=== PATIENT | female | born 1995 | race Hispanic/Latino ===

== ENCOUNTER 2019-03-03 13:58 | Emergency (ER) | payer BC, OTHER ==
--- NOTE | 2019-03-03 14:50 | ER ---
Nurse's Notes [facility] Name: Susanna Genao Age: 23 yrs Sex: Female : 1995 Arrival Date: 03/03/2019 Time: 14:01 Bed 12 Private MD: Diagnosis: Conjunctivitis Presentation: 03/03 14:08 Presenting complaint: Patient states: i think i have pink eye, it started 3 days ago;i hj used Visine;. Transition of care: patient was not received from another setting of care. Onset of symptoms was March 03, 2019. Risk Assessment: Do you want to hurt yourself or someone else? Patient reports no desire to harm self or others. Initial Sepsis Screen: Does the patient meet any 2 criteria? No. Patient's initial sepsis screen is negative. Does the patient have a suspected source of infection? No. Patient's initial sepsis screen is negative. Care prior to arrival: None. 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 2 in. (157.48 cm); Pain 5/10; 14:09 Body Mass Index 19.57 (48.53 kg, 157.48 cm) ED Course: 14:01 Patient arrived in ED. rg4 14:09 Triage completed. hj 14:09 Jenny Jeffers FNP-C is [facility]. kb 14:09 Kelton Holder MD is Attending Physician. kb 14:10 Arm band placed on right wrist. Administered Medications: No medications were administered Outcome: 14:50 Discharge ordered by . kb 15:19 Discharged to home ambulatory. hj 15:19 Condition: stable 15:19 Discharge instructions given to patient, Instructed on discharge instructions, follow up and referral plans. medication usage, Demonstrated understanding of instructions, follow-up care, medications, Prescriptions given X 1. 15:19 Patient left the ED. Signatures: Jenny Jeffers, SHIRLEYC PILE DRIVING NOZZLEMAN-Ihsan Jackson, RN RN Luz Maria Ferguson rg4 Corrections: (The following items were deleted from the chart) 14:11 14:09 Pulse 109bpm; Resp 18bpm; Pulse Ox 98% RA; Temp 97.8F Temporal; 48.53 kg; Height hj 5 ft. 2 in.; BMI: 19.5; Pain 5/10; hj
--- NOTE | 2019-03-03 14:51 | EDPHYS ---
Physician Documentation [facility] Name: Susanna Genao Age: 23 yrs Sex: Female : 1995 Arrival Date: 03/03/2019 Time: 14:01 Bed 12 Private MD: ED Physician Kelton Holder HPI: 03/03 15:35 This 23 yrs old Female presents to ER via Ambulatory with complaints of kb Redness of Eye. 15:35 The patient is experiencing matting or discharge, redness, The patient sustained None. kb to the left eye, caused by an unknown mechanism. Onset: The symptoms/episode began/occurred 3 day(s) ago. Duration: the symptoms are continuous. Aggravated by nothing. Alleviated by nothing. Associated signs and symptoms: Pertinent positives: None. Severity of symptoms: At their worst the symptoms were moderate in the emergency department the symptoms are unchanged. The patient has not experienced similar symptoms in the past. The patient has not recently seen a physician. 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 Historical: - Allergies: 14:09 No Known Allergies; - PMHx: 14:09 Anxiety; Bipolar disorder; GERD; - PSHx: 14:09 Cholecystectomy; ROS: 15:35 Constitutional: Negative for fever, chills, and weight loss, ENT: Negative for injury, kb pain, and discharge, Cardiovascular: Negative for chest pain, palpitations, and edema, Respiratory: Negative for shortness of breath, cough, wheezing, and pleuritic chest pain, Abdomen/GI: Negative for abdominal pain, nausea, vomiting, diarrhea, and constipation, MS/Extremity: Negative for injury and deformity, Skin: Negative for injury, rash, and discoloration, Neuro: Negative for headache, weakness, numbness, tingling, and seizure. 15:35 Eyes: Positive for discharge, matting, redness. Exam: 15:34 Constitutional: This is a well developed, well nourished patient who is awake, alert, kb and in no acute distress. Head/Face: Normocephalic, atraumatic. ENT: Nares patent. No nasal discharge, no septal abnormalities noted. Tympanic membranes are normal and external auditory canals are clear. Oropharynx with no redness, swelling, or masses, exudates, or evidence of obstruction, uvula midline. Mucous membranes moist. Neck: Trachea midline, no thyromegaly or masses palpated, and no cervical lymphadenopathy. Supple, full range of motion without nuchal rigidity, or vertebral point tenderness. No Meningismus. Chest/axilla: Normal chest wall appearance and motion. Nontender with no deformity. No lesions are appreciated. Cardiovascular: Regular rate and rhythm with a normal S1 and S2. No gallops, murmurs, or rubs. Normal PMI, no JVD. No pulse deficits. Respiratory: Lungs have equal breath sounds bilaterally, clear to auscultation and percussion. No rales, rhonchi or wheezes noted. No increased work of breathing, no retractions or nasal flaring. Abdomen/GI: Soft, non-tender, with normal bowel sounds. No distension or tympany. No guarding or rebound. No evidence of tenderness throughout. Skin: Warm, dry with normal turgor. Normal color with no rashes, no lesions, and no evidence of cellulitis. MS/ Extremity: Pulses equal, no cyanosis. Neurovascular intact. Full, normal range of motion. Neuro: Awake and alert, GCS 15, oriented to person, place, time, and situation. Cranial nerves II-XII grossly intact. Motor strength 5/5 in all extremities. Sensory grossly intact. Cerebellar exam normal. Normal gait. 15:34 Eyes: Conjunctiva: injected, in the left eye. Vital Signs: 14:09 BP 100 / 76; Pulse 109; Resp 18; Temp 97.8(TE); Pulse Ox 98% on R/A; Weight 48.53 kg; hj Height 5 ft. 2 in. (157.48 cm); Pain 5/10; 14:09 Body Mass Index 19.57 (48.53 kg, 157.48 cm) MDM: 14:12 Patient medically screened. kb 15:34 Data reviewed: vital signs, nurses notes. Data interpreted: Pulse oximetry: on room air kb is 98 %. Interpretation: normal. Counseling: I had a detailed discussion with the patient and/or guardian regarding: the historical points, exam findings, and any diagnostic results supporting the discharge/admit diagnosis, the need for outpatient follow up, an opthalmologist, to return to the emergency department if symptoms worsen or persist or if there are any questions or concerns that arise at home. Administered Medications: No medications were administered Disposition: 16:47 Co-signature as Attending Physician, Kelton Holder MD. Disposition: 03/03/19 14:50 Discharged to Home. Impression: Conjunctivitis. - Condition is Stable. - Discharge Instructions: Bacterial Conjunctivitis, [id number]. - Prescriptions for Erythromycin 5 mg/gram (0.5 %) Ophthalmic Ointment - apply 1 centimeter by OPHTHALMIC route 2-3 times daily for 7 days; 1 tube. - Medication Reconciliation Form, Thank You Letter, Antibiotic Education, Prescription Opioid Use, Work release form form. - Follow up: Emergency Department; When: As needed; Reason: Worsening of condition. Follow up: Private Physician; When: 2 - 3 days; Reason: Recheck today's complaints, Continuance of care, Re-evaluation by your physician. Signatures: Jenny Jeffers FNP-C FNP-Ihsan Jackson RN RN Kelton Rodriguez MD MD Corrections: (The following items were deleted from the chart) 15:19 14:50 03/03/2019 14:50 Discharged to Home. Impression: Conjunctivitis. Condition is hj Stable. Forms are Medication Reconciliation Form, Thank You Letter, Antibiotic Education, Prescription Opioid Use. Follow up: Emergency Department; When: As needed; Reason: Worsening of condition. Follow up: Private Physician; When: 2 - 3 days; Reason: Recheck today's complaints, Continuance of care, Re-evaluation by your physician. kb
[2019-03-03 15:31] VITALS: BP 100/76; TEMP 97.8; O2SAT 98
== END 2019-03-03 15:19 | disposition home or self-care (01) ==
LOC: ER 13:58
DX: H10.9 Unspecified conjunctivitis (principal)
CPT/HCPCS: 99282

== ENCOUNTER 2019-06-11 22:58 | Emergency (ER) | payer BC, SELFPAY ==
--- NOTE | 2019-06-11 23:15 | EDPHYS ---
Physician Documentation [facility] Name: Susanna Genao Age: 24 yrs Sex: Female : 1995 Arrival Date: 06/11/2019 Time: 23:08 Bed 6 Private MD: ED Physician Fidencio Fernandez HPI: 06/12 00:17 This 24 yrs old Female presents to ER via EMS with complaints of anxiety. tw4 00:17 The patient presents to the emergency department with anxiety, being arrested. Onset: tw4 The symptoms/episode began/occurred today. Past psychiatric history: Prior diagnosis: bipolar disorder. Associated signs and symptoms: The patient has no apparent associated signs or symptoms. The patient has experienced similar episodes in the past, a few times, and the symptoms today are exactly the same, to when the patient was apparently diagnosed with anxiety disorder. pt arrested by the police and pt stated that she was having a panic attack. 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 - Social history:: Smoking status: Patient uses tobacco products, smokes one pack cigarettes per day. - Ebola Screening: : No symptoms or risks identified at this time. ROS: 06/12 00:17 Constitutional: Negative for fever, chills, and weight loss, Eyes: Negative for injury, tw4 pain, redness, and discharge, Cardiovascular: Negative for chest pain, palpitations, and edema, Respiratory: Negative for shortness of breath, cough, wheezing, and pleuritic chest pain, Abdomen/GI: Negative for abdominal pain, nausea, vomiting, diarrhea, and constipation, Back: Negative for injury and pain, MS/Extremity: Negative for injury and deformity, Skin: Negative for injury, rash, and discoloration, Neuro: Negative for headache, weakness, numbness, tingling, and seizure. Psych: Positive for anxiety, drug dependence. Exam: 00:17 Constitutional: This is a well developed, well nourished patient who is awake, alert, tw4 and in no acute distress. Head/Face: Normocephalic, atraumatic. Chest/axilla: Normal chest wall appearance and motion. Nontender with no deformity. No lesions are appreciated. Cardiovascular: Regular rate and rhythm with a normal S1 and S2. No gallops, murmurs, or rubs. Normal PMI, no JVD. No pulse deficits. Respiratory: Lungs have equal breath sounds bilaterally, clear to auscultation and percussion. No rales, rhonchi or wheezes noted. No increased work of breathing, no retractions or nasal flaring. Abdomen/GI: Soft, non-tender, with normal bowel sounds. No distension or tympany. No guarding or rebound. No evidence of tenderness throughout. MS/ Extremity: Pulses equal, no cyanosis. Neurovascular intact. Full, normal range of motion. Neuro: Awake and alert, GCS 15, oriented to person, place, time, and situation. Cranial nerves II-XII grossly intact. Motor strength 5/5 in all extremities. Sensory grossly intact. Cerebellar exam normal. Normal gait. Psych: Awake, alert, with orientation to person, place and time. Behavior, mood, and affect are within normal limits. Vital Signs: 06/11 23:00 BP 131 / 97; Pulse 101; Resp 20 S; Temp 98.3(O); Pulse Ox 99% on R/A; Weight 56.7 kg cc3 (R); Height 5 ft. 2 in. (157.48 cm) (R); 23:00 Body Mass Index 22.86 (56.70 kg, 157.48 cm) cc3 MDM: 23:08 Patient medically screened. tw4 06/12 00:17 Data reviewed: vital signs, nurses notes. Counseling: I had a detailed discussion with tw4 the patient and/or guardian regarding: the historical points, exam findings, and any diagnostic results supporting the discharge/admit diagnosis. Special discussion: I discussed with the patient/guardian in detail that at this point there is no indication for admission to the hospital. It is understood, however, that if the symptoms persist or worsen the patient needs to return immediately for re-evaluation. ED course: pt released into police custody. Administered Medications: No medications were administered Disposition: 08/24/19 23:14 Discharged to Home. Impression: Anxiety disorder, unspecified. - Condition is Stable. - Discharge Instructions: Panic Attacks, Generalized Anxiety Disorder. - Medication Reconciliation Form, Thank You Letter, Antibiotic Education, Prescription Opioid Use form. - Follow up: Private Physician; When: Upon discharge from the Emergency Department; Reason: If symptoms return, Recheck today's complaints, Continuance of care. - Problem is new. - Symptoms have improved. Signatures: Fidencio Fernandez MD MD tw4 Zenaida Ramos cc3 Corrections: (The following items were deleted from the chart) 06/11 23:29 23:14 06/11/2019 23:14 Discharged to Home. Impression: Anxiety disorder, unspecified. cc3 Condition is Stable. Forms are Medication Reconciliation Form, Thank You Letter, Antibiotic Education, Prescription Opioid Use. Follow up: Private Physician; When: Upon discharge from the Emergency Department; Reason: If symptoms return, Recheck today's complaints, Continuance of care. Problem is new. Symptoms have improved. tw4
--- NOTE | 2019-06-11 23:15 | ER ---
Nurse's Notes [facility] Name: Susanna Genao Age: 24 yrs Sex: Female : 1995 Arrival Date: 06/11/2019 Time: 23:08 Bed 6 Private MD: Diagnosis: Anxiety disorder, unspecified Presentation: 06/11 23:00 Presenting complaint: EMS states: "We were called for patient's anxiety attack and cc3 alcohol intoxication. She smoked THC, CBD, and nicotine tonight" Patient said she drank 1 cup of Fireball drink and 2 cups of Buzzball alcoholic drink tonight. air intelligence officer said she was drunk and disturbing all her neighbors that's why they were called. Transition of care: patient was not received from another setting of care. Onset of symptoms was June 11, 2019. Risk Assessment: Do you want to hurt yourself or someone else? Patient reports no desire to harm self or others. Initial Sepsis Screen: Does the patient meet any 2 criteria? No. Patient's initial sepsis screen is negative. Does the patient have a suspected source of infection? No. Patient's initial sepsis screen is negative. Care prior to arrival: None. 23:00 Method Of Arrival: EMS: [facility] cc3 23:00 Acuity: SHARON 3 cc3 Triage Assessment: 23:00 General: Appears in no apparent distress. comfortable, unkempt, Behavior is calm, cc3 cooperative. Pain: Denies pain. EENT: No signs and/or symptoms were reported regarding the EENT system. Neuro: Level of Consciousness is awake, alert, obeys commands, Oriented to person, place, time, situation, Appropriate for age. Cardiovascular: Denies chest pain, Capillary refill < 3 seconds Patient's skin is warm and dry. Respiratory: Airway is patent Respiratory effort is even, unlabored, Respiratory pattern is regular, symmetrical, Breath sounds are clear bilaterally. GI: Abdomen is round non-distended. : No signs and/or symptoms were reported regarding the genitourinary system. Derm: Skin is intact, is healthy with good turgor, Skin is pink, warm \\T\\ dry. normal. Musculoskeletal: Circulation, motion, and sensation intact. Range of motion: intact in all extremities. 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 - Social history:: Smoking status: Patient uses tobacco products, smokes one pack cigarettes per day. - Ebola Screening: : No symptoms or risks identified at this time. Screenin:00 Abuse screen: Denies threats or abuse. Denies injuries from another. Nutritional cc3 screening: No deficits noted. Tuberculosis screening: No symptoms or risk factors identified. Fall Risk Ambulatory Aid- None/Bed Rest/Nurse Assist (0 pts). Gait- Normal/Bed Rest/Wheelchair (0 pts) Mental Status- Oriented to own ability (0 pts). Assessment: 23:00 General: see triage assessment. cc3 23:10 Reassessment: Patient appears in no apparent distress at this time. Patient and/or cc3 family updated on plan of care and expected duration. Pain level reassessed. Patient is alert, oriented x 3, equal unlabored respirations, skin warm/dry/pink. Patient became anxious and freaked out when the [facility] [employer] police reserves was talking to her that they'll take her to skilled nursing. 23:29 Reassessment: Patient appears in no apparent distress at this time. Patient and/or cc3 family updated on plan of care and expected duration. Pain level reassessed. Patient is alert, oriented x 3, equal unlabored respirations, skin warm/dry/pink. Dr. Fernandez discharged the patient. Patient escorted out of ER by two [facility] police officers. No valuables left in the patient's room. Patient denies pain at this time. Vital Signs: 23:00 BP 131 / 97; Pulse 101; Resp 20 S; Temp 98.3(O); Pulse Ox 99% on R/A; Weight 56.7 kg cc3 (R); Height 5 ft. 2 in. (157.48 cm) (R); 23:00 Body Mass Index 22.86 (56.70 kg, 157.48 cm) 3 ED Course: 23:00 Patient has correct armband on for positive identification. Placed in gown. Bed in low cc3 position. Call light in reach. Side rails up X 1. Pulse ox on. NIBP on. 23:00 Arm band placed on right wrist. Patient notified of wait time. cc3 23:08 Patient arrived in ED. tw4 23:08 Fidencio Fernanedz MD is Attending Physician. tw4 23:08 Zenaida Ramos is Primary Nurse. cc3 23:21 Triage completed. cc3 23:30 No provider procedures requiring assistance completed. Patient did not have IV access cc3 during this emergency room visit. Administered Medications: No medications were administered Outcome: 23:14 Discharge ordered by . tw4 23:29 Patient left the ED. cc3 23:29 Discharged to Law Enforcement cc3 23:29 Condition: stable 23:29 Discharge instructions given to patient, police, Instructed on discharge instructions, follow up and referral plans. Demonstrated understanding of instructions, follow-up care. Signatures: Fidencio Fernandez MD MD tw4 Zenaida Ramos cc3
[2019-06-12 00:47] VITALS: BP 131/97; TEMP 98.3; O2SAT 99
== END 2019-06-11 23:29 | disposition home or self-care (01) ==
LOC: ER 22:58
DX: F41.9 Anxiety disorder, unspecified (principal); F17.210 Nicotine dependence, cigarettes, uncomplicated; F31.9 Bipolar disorder, unspecified; Z88.5 Allergy status to narcotic agent
CPT/HCPCS: 99283

== ENCOUNTER 2019-06-25 12:13 | Emergency (ER) | payer SELFPAY ==
--- NOTE | 2019-06-25 13:07 | EDPHYS ---
Physician Documentation [facility] Name: Susanna Genao Age: 24 yrs Sex: Female : 1995 Arrival Date: 06/25/2019 Time: 12:16 Bed 5 Private MD: None, None ED Physician Eliseo Mesa HPI: 06/25 12:45 This 24 yrs old Female presents to ER via Ambulatory with complaints of Ear rn Pain, Leg Pain. 12:45 The patient presents with drainage, swelling. The complaints affect the right ear. rn Onset: The symptoms/episode began/occurred yesterday. Modifying factors: The symptoms are alleviated by nothing, the symptoms are aggravated by touching. Severity of symptoms: At their worst the symptoms were mild in the emergency department the symptoms are unchanged. The patient has experienced similar episodes in the past. Reports had some pimples on right ear, popped them yesterday, drained small amount of pus, and now more swollen. Reports several episodes in past. . 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 - Social history:: Smoking status: Patient uses tobacco products, smokes one pack cigarettes per day. - Ebola Screening: : No symptoms or risks identified at this time. - Family history:: not pertinent. - Hospitalizations: : No recent hospitalization is reported. ROS: 13:02 Constitutional: Negative for fever, chills, and weight loss, Eyes: Negative for injury, rn pain, redness, and discharge, ENT: + right ear pain and swelling Cardiovascular: Negative for chest pain, palpitations, and edema, Respiratory: Negative for shortness of breath, cough, wheezing, and pleuritic chest pain, Abdomen/GI: Negative for abdominal pain, nausea, vomiting, diarrhea, and constipation, MS/Extremity: Negative for injury and deformity, Skin: + rash Neuro: Negative for headache, weakness, numbness, tingling, and seizure. Exam: 13:02 Constitutional: This is a well developed, well nourished patient who is awake, alert, rn and in no acute distress. Head/Face: Normocephalic, atraumatic. ENT: Right inferior lobe of ear with erythema and honey-colored discharge/crusting, no fluctuance. Skin: Warm, dry, several small pustules in groin and extremities, no gross fluctuance. Vital Signs: 12:25 BP 126 / 81; Pulse 93; Resp 18 S; Temp 98.6(O); Pulse Ox 98% on R/A; Weight 56.7 kg aa5 (R); Height 5 ft. 2 in. (157.48 cm) (R); Pain 5/10; 12:25 Body Mass Index 22.86 (56.70 kg, 157.48 cm) aa5 MDM: 12:33 Patient medically screened. rn 13:02 Differential diagnosis: cellulitis/impetigo. Data reviewed: vital signs, nurses notes, rn and as a result, I will discharge patient. Counseling: I had a detailed discussion with the patient and/or guardian regarding: the historical points, exam findings, and any diagnostic results supporting the discharge/admit diagnosis, the need for outpatient follow up, to return to the emergency department if symptoms worsen or persist or if there are any questions or concerns that arise at home. Special discussion: I discussed with the patient/guardian in detail that at this point there is no indication for admission to the hospital. It is understood, however, that if the symptoms persist or worsen the patient needs to return immediately for re-evaluation. Administered Medications: No medications were administered Disposition: 06/25/19 13:05 Discharged to Home. Impression: Cellulitis of right external ear. - Condition is Stable. - Discharge Instructions: Cellulitis, Adult. - Prescriptions for Bactroban 2 % Topical Ointment - Apply to affected area 1 application by TOPICAL route every 12 hours; 30 gram. Clindamycin HCl 300 mg Oral Capsule - take 1 capsule by ORAL route every 6 hours for 10 days; 40 capsule. Bactrim DS 800- 160 mg Oral Tablet - take 1 tablet by ORAL route every 12 hours for 10 days; 20 tablet. - Medication Reconciliation Form, Thank You Letter, Antibiotic Education, Prescription Opioid Use form. - Follow up: Private Physician; When: As needed; Reason: Recheck today's complaints, Re-evaluation by your physician. - Problem is new. - Symptoms have improved. Signatures: Eliseo Mesa MD MD rn Nancy Mackenzie RN RN aa5 Jazmin Thayer RN RN ph Corrections: (The following items were deleted from the chart) 13:03 12:45 Reports had some pimples on right ear, popped them yesterday, drained small rn amount of pus, and now more swollen. . rn 13:09 13:05 06/25/2019 13:05 Discharged to Home. Impression: Cellulitis of right external ph ear. Condition is Stable. Forms are Medication Reconciliation Form, Thank You Letter, Antibiotic Education, Prescription Opioid Use. Follow up: Private Physician; When: As needed; Reason: Recheck today's complaints, Re-evaluation by your physician. Problem is new. Symptoms have improved. rn
--- NOTE | 2019-06-25 13:07 | ER ---
Nurse's Notes [facility] Name: Susanna Genao Age: 24 yrs Sex: Female : 1995 Arrival Date: 06/25/2019 Time: 12:16 Bed 5 Private MD: None, None Diagnosis: Cellulitis of right external ear Presentation: 06/25 12:24 Presenting complaint: Patient states: "I had some bumps on my ear and I popped them and aa5 now it's all swollen". Pt also c/o possible groin abscess. Transition of care: patient was not received from another setting of care. Onset of symptoms was June 2019. Risk Assessment: Do you want to hurt yourself or someone else? Patient reports no desire to harm self or others. Initial Sepsis Screen: Does the patient meet any 2 criteria? No. Patient's initial sepsis screen is negative. Does the patient have a suspected source of infection? No. Patient's initial sepsis screen is negative. Care prior to arrival: None. 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 - Social history:: Smoking status: Patient uses tobacco products, smokes one pack cigarettes per day. - Ebola Screening: : No symptoms or risks identified at this time. - Family history:: not pertinent. - Hospitalizations: : No recent hospitalization is reported. Screenin:09 Abuse screen: Denies threats or abuse. Denies injuries from another. Nutritional ph screening: No deficits noted. Tuberculosis screening: No symptoms or risk factors identified. Fall Risk None identified. Assessment: 13:09 Reassessment: Patient appears in no apparent distress at this time. Patient and/or ph family updated on plan of care and expected duration. Pain level reassessed. Patient is alert, oriented x 3, equal unlabored respirations, skin warm/dry/pink. Pt d/c home. Vital Signs: 12:25 BP 126 / 81; Pulse 93; Resp 18 S; Temp 98.6(O); Pulse Ox 98% on R/A; Weight 56.7 kg aa (R); Height 5 ft. 2 in. (157.48 cm) (R); Pain 5/10; 12:25 Body Mass Index 22.86 (56.70 kg, 157.48 cm) [facility] ED Course: 12:16 Patient arrived in ED. ag5 12:16 None, None is Private Physician. ag5 12:24 Arm band placed on. aa5 12:27 Triage completed. aa5 12:30 Jazmin Thayer, RN is Primary Nurse. ph 12:33 Eliseo Mesa MD is Attending Physician. rn 13:09 Patient has correct armband on for positive identification. Bed in low position. Call ph light in reach. Side rails up X 1. Pulse ox on. NIBP on. Administered Medications: No medications were administered Outcome: 13:05 Discharge ordered by . rn 13:09 Patient left the ED. ph Signatures: Eliseo Mesa MD MD rn Calderon, Audri RN RN [facility] Jazmin Thayer, RN RN [place] [id number]
[2019-06-25 14:21] VITALS: BP 126/81; TEMP 98.6; O2SAT 98
== END 2019-06-25 13:09 | disposition home or self-care (01) ==
LOC: ER 12:13
DX: H60.11 Cellulitis of right external ear (principal); F41.9 Anxiety disorder, unspecified; F17.210 Nicotine dependence, cigarettes, uncomplicated; Z88.6 Allergy status to analgesic agent
CPT/HCPCS: 99282

== ENCOUNTER 2019-06-28 20:19 | Emergency (ER) | payer SELFPAY ==
[2019-06-28] MEDS ORDERED: LIDOCAINE 1% MPF 5 ML VIAL ONE (20:47)
[2019-06-28] MEDS ORDERED: TETANUS & DIPHTHERIA TOX,ADULT 0.5 ML VIAL ONE (21:01)
--- NOTE | 2019-06-28 21:09 | ER ---
Nurse's Notes [facility] Name: Susanna Genao Age: 24 yrs Sex: Female : 1995 Arrival Date: 06/28/2019 Time: 20:21 Bed 24 Private MD: Diagnosis: Laceration without foreign body of right ring finger without damage to nail Presentation: 06/28 20:34 Presenting complaint: Patient states: She accidentally cut her right ring finger with a aj1 knife one hour ago while washing dishes. Laceration noted to right ring finger, no bleeding noted at this time. Patient also reports nausea at this time. Transition of care: patient was not received from another setting of care. Complicating Factors: There are no complicating factors for this patient. Onset of symptoms was June 28, 2019. Risk Assessment: Do you want to hurt yourself or someone else? Patient reports no desire to harm self or others. Initial Sepsis Screen: Does the patient meet any 2 criteria? No. Patient's initial sepsis screen is negative. Does the patient have a suspected source of infection? No. Patient's initial sepsis screen is negative. Care prior to arrival: None. 20:34 Method Of Arrival: Ambulatory aj1 20:34 Acuity: SHARON 4 aj1 Triage Assessment: 20:37 General: Appears in no apparent distress. comfortable, Behavior is calm, cooperative, aj1 appropriate for age. Pain: Complains of pain in palmar aspect of distal phalanx of right ring finger Pain does not radiate. Neuro: Level of Consciousness is awake, alert, obeys commands, Oriented to person, place, time, situation. Cardiovascular: Patient's skin is warm and dry. Respiratory: Airway is patent Respiratory effort is even, unlabored, Respiratory pattern is regular, symmetrical. Injury Description: Laceration sustained to palmar aspect of distal phalanx of right ring finger is 0.5 to 2.5 cm long, not bleeding, was sustained 1-2 hours ago. 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 - Social history:: Smoking status: Patient uses tobacco products, smokes one pack cigarettes per day. - Ebola Screening: : Patient denies travel to an Ebola-affected area in the 21 days before illness onset. Screenin:49 Abuse screen: Denies threats or abuse. Denies injuries from another. Nutritional ca1 screening: No deficits noted. Tuberculosis screening: No symptoms or risk factors identified. Fall Risk None identified. Assessment: 20:48 General: Appears in no apparent distress. comfortable, Behavior is calm, cooperative, ca1 appropriate for age. Pain: Complains of pain in palmar aspect of distal phalanx of right ring finger Pain currently is 5 out of 10 on a pain scale. Derm: Skin is healthy with good turgor, Skin is pink, warm \T\ dry. Musculoskeletal: Circulation, motion, and sensation intact. Capillary refill < 3 seconds, Range of motion: intact in all extremities. Injury Description: Laceration sustained to palmar aspect of distal phalanx of right middle finger is clean, 0.5 to 2.5 cm long, was sustained 30-60 minutes ago. is bleeding a small amount. 21:19 Reassessment: Patient appears in no apparent distress at this time. Patient is alert, ca1 oriented x 3, equal unlabored respirations, skin warm/dry/pink. Pt reports is taking Clindamycin and Sulfa antibiotics for an ear infection. Notified provider. To instruct pt to just continue taking existing antibiotics. Vital Signs: 20:37 BP 118 / 85; Pulse 88; Resp 18; Temp 97.3; Pulse Ox 98% on R/A; Weight 54.43 kg (R); aj1 Height 5 ft. 2 in. (157.48 cm) (R); 20:37 Body Mass Index 21.95 (54.43 kg, 157.48 cm) aj1 ED Course: 20:21 Patient arrived in ED. do 20:31 David Bermudez NP is PHCP. pm1 20:31 Fox Chávez MD is Attending Physician. pm1 20:34 Liliana Mcmahon RN is Primary Nurse. aj1 20:36 Triage completed. aj1 20:37 Arm band placed on Patient placed in an exam room. aj1 20:49 Patient has correct armband on for positive identification. Bed in low position. Call ca1 light in reach. Side rails up X 1. Pulse ox on. NIBP on. Warm blanket given. 20:49 Patient did not have IV access during this emergency room visit. ca1 21:13 Assist provider with laceration repair on palmar aspect of distal phalanx of right ring ca1 finger that was 2.5 cm. or less using Steri-strips. Set up tray. Performed by David Bermudez CASHIER RECEPTIONIST Dressed with tube dressing Patient tolerated well. Wound care: to laceration located on palmar aspect of distal phalanx of right ring finger was cleaned with Hibiclens, Patient tolerated well. Administered Medications: 21:07 Drug: Tetanus-Diphtheria Toxoid Adult 0.5 ml {Pediatric Psychiatrist: [employer]. Exp: ca1 03/01/2021. Lot #: [id number]. } Route: IM; Site: right deltoid; 21:20 Follow up: Response: No adverse reaction ca1 21:13 Not Given (Patient Refused): Lidocaine (1 %) 5 ml 5 ml Infiltration once; to bedside ca1 Outcome: 21:08 Discharge ordered by MD. pm1 21:20 Discharged to home ambulatory, with significant other. ca1 21:20 Condition: stable 21:20 Discharge instructions given to patient, Instructed on discharge instructions, follow up and referral plans. wound care, Demonstrated understanding of instructions, follow-up care, wound care. 21:21 Patient left the ED. ca1 Signatures: Liliana Mcmahon, RN RN aj1 Glo Sauer Patrick, NP CASHIER RECEPTIONIST pm1 Savannah Pack RN RN ca1
--- NOTE | 2019-06-28 21:09 | EDPHYS ---
Physician Documentation [facility] Name: Susanna Genao Age: 24 yrs Sex: Female : 1995 Arrival Date: 06/28/2019 Time: 20:21 Bed 24 Private MD: ED Physician Fox Chávez HPI: 06/28 20:46 This 24 yrs old Female presents to ER via Ambulatory with complaints of pm1 Laceration To Hand. 20:46 The patient has a laceration related to: cleaning dishes occurred at home, and there pm1 are no complicating factors. The injury was cut finger while cleaning knife. The laceration(s) is(are) located on the palmar aspect of distal phalanx of right ring finger. Onset: The symptoms/episode began/occurred 1 hour prior to arrival. Associated signs and symptoms: Pertinent negatives: heavy bleeding, numbness distal to injury, suspected foreign body. The patient has not experienced similar symptoms in the past. Patient cut her finger on a knife while cleaning it prior to arrival. 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 - Social history:: Smoking status: Patient uses tobacco products, smokes one pack cigarettes per day. - Ebola Screening: : Patient denies travel to an Ebola-affected area in the 21 days before illness onset. ROS: 20:46 Constitutional: Negative for fever, chills, and weight loss. pm1 20:46 Neuro: Negative for headache, weakness, numbness, tingling, and seizure. 20:46 MS/extremity: Positive for laceration, of the palmar aspect of distal phalanx of right ring finger, Negative for decreased range of motion, deformity. 20:46 Skin: Positive for laceration(s), of the palmar aspect of distal phalanx of right ring finger. 20:46 All other systems are negative. Exam: 20:46 Constitutional: This is a well developed, well nourished patient who is awake, alert, pm1 and in no acute distress. Head/Face: Normocephalic, atraumatic. Neck: Trachea midline, no thyromegaly or masses palpated, and no cervical lymphadenopathy. Supple, full range of motion without nuchal rigidity, or vertebral point tenderness. No Meningismus. Chest/axilla: Normal chest wall appearance and motion. Nontender with no deformity. No lesions are appreciated. Cardiovascular: Regular rate and rhythm with a normal S1 and S2. No gallops, murmurs, or rubs. Normal PMI, no JVD. No pulse deficits. Respiratory: Lungs have equal breath sounds bilaterally, clear to auscultation and percussion. No rales, rhonchi or wheezes noted. No increased work of breathing, no retractions or nasal flaring. Abdomen/GI: Soft, non-tender, with normal bowel sounds. No distension or tympany. No guarding or rebound. No evidence of tenderness throughout. Back: No spinal tenderness. No costovertebral tenderness. Full range of motion. 20:46 Skin: Appearance: normal except for affected area, injury, laceration(s), the wound is approximately 1 cm(s), of the palmar aspect of distal phalanx of right ring finger. 20:46 Neuro: Orientation: is normal, Motor: is normal, moves all fours, Sensation: is normal, no obvious gross deficits. Vital Signs: 20:37 BP 118 / 85; Pulse 88; Resp 18; Temp 97.3; Pulse Ox 98% on R/A; Weight 54.43 kg (R); aj1 Height 5 ft. 2 in. (157.48 cm) (R); 20:37 Body Mass Index 21.95 (54.43 kg, 157.48 cm) aj1 MDM: 20:36 Patient medically screened. pm1 21:05 Refusal of service: The patient/guardian displays adequate decision making capability pm1 and despite a detailed discussion of alternatives, benefits, risks, and consequences refuses: sutures. Patient requesting butterfly bandages . 21:16 Data reviewed: vital signs. Data interpreted: Pulse oximetry: on room air is 98 %. pm1 Interpretation: normal. 21:17 ED course: Patient currently on clindamycin and sulfa for otitis media. Antibiotics pm1 will cover finger laceration. 06/28 20:46 Order name: Prolene, Sutures; Complete Time: 20:48 pm1 06/28 20:46 Order name: Dressing - Wound; Complete Time: 20:48 pm1 06/28 20:46 Order name: Gloves, Sterile; Complete Time: 20:48 pm1 06/28 20:46 Order name: Setup Suture Tray; Complete Time: 20:48 pm1 Administered Medications: 21:07 Drug: Tetanus-Diphtheria Toxoid Adult 0.5 ml {Anode Rebuilder: [employer]. Exp: ca1 03/01/2021. Lot #: [id number]. } Route: IM; Site: right deltoid; 21:20 Follow up: Response: No adverse reaction ca1 21:13 Not Given (Patient Refused): Lidocaine (1 %) 5 ml 5 ml Infiltration once; to bedside ca1 Disposition: 21:12 Co-signature as Attending Physician, Fox Chávez MD. ma2 Disposition: 06/28/19 21:08 Discharged to Home. Impression: Laceration without foreign body of right ring finger without damage to nail. - Condition is Stable. - Discharge Instructions: Nonsutured Laceration Care. - Prescriptions for Keflex 500 mg Oral Capsule - take 1 capsule by ORAL route every 12 hours for 10 days; 20 capsule. - Medication Reconciliation Form, Thank You Letter, Antibiotic Education, Prescription Opioid Use form. - Follow up: Emergency Department; When: As needed; Reason: Worsening of condition. Follow up: Private Physician; When: 2 - 3 days; Reason: Recheck today's complaints, Continuance of care, Re-evaluation by your physician. - Problem is new. - Symptoms have improved. Signatures: Liliana Mcmahon RN RN aj1 David Bermudez, EGG BREAKING MACHINE OPERATOR EGG BREAKING MACHINE OPERATOR pm1 Fox Chávez MD MD ma2 Savannah Pack RN RN ca1 Corrections: (The following items were deleted from the chart) 21:21 21:08 06/28/2019 21:08 Discharged to Home. Impression: Laceration without foreign body ca1 of right ring finger without damage to nail. Condition is Stable. Forms are Medication Reconciliation Form, Thank You Letter, Antibiotic Education, Prescription Opioid Use. Follow up: Emergency Department; When: As needed; Reason: Worsening of condition. Follow up: Private Physician; When: 2 - 3 days; Reason: Recheck today's complaints, Continuance of care, Re-evaluation by your physician. Problem is new. Symptoms have improved. pm1
[2019-06-28 21:28] VITALS: BP 118/85; TEMP 97.3; O2SAT 98
== END 2019-06-28 21:21 | disposition home or self-care (01) ==
LOC: ER 20:19
DX: S61.214A Laceration without foreign body of right ring finger without damage to nail, initial encounter (principal); W26.0XXA Contact with knife, initial encounter; Y93.G1 Activity, food preparation and clean up; Y92.010 Kitchen of single-family (private) house as the place of occurrence of the external cause; Z23 Encounter for immunization
CPT/HCPCS: 90471; 90714; 99284

== ENCOUNTER 2020-07-25 00:32 | Emergency (ER) | payer SELFPAY ==
--- NOTE | 2020-07-25 01:31 | ER ---
Nurse's Notes [facility] Name: Susanna Genao Age: 25 yrs Sex: Female : 1995 Arrival Date: 07/25/2020 Time: 00:33 Bed 8 Private MD: Diagnosis: Presentation: 07/25 00:44 Chief complaint: Patient states: rectal pain after bouts of diarrhea. pressure like rv from the inside that radiates to front side, 07/28. denies any nausea/vomiting/fever. Coronavirus screen: Client denies travel out of the [place] in the last 14 days. Ebola Screen: No symptoms or risks identified at this time. Initial Sepsis Screen: Does the patient meet any 2 criteria? No. Patient's initial sepsis screen is negative. Does the patient have a suspected source of infection? No. Patient's initial sepsis screen is negative. Risk Assessment: Do you want to hurt yourself or someone else? Patient reports no desire to harm self or others. Onset of symptoms was July 25, 2020. 00:44 Method Of Arrival: Ambulatory rv 00:44 Acuity: SHARON 3 rv Triage Assessment: 00:47 General: Appears uncomfortable, ill, Behavior is calm, cooperative. Pain: Complains of rv pain in rectum Pain radiates to groin Pain currently is 10 out of 10 on a pain scale. Quality of pain is described as crampy, pressure, Pain began gradually. EENT: No signs and/or symptoms were reported regarding the EENT system. Neuro: Level of Consciousness is awake, alert, obeys commands, Oriented to person, place, time, situation. Cardiovascular: Patient's skin is warm and dry. Respiratory: Airway is patent Respiratory effort is even, unlabored. Derm: Skin is intact. 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 - Social history:: Smoking status: Patient reports the use of cigarette tobacco products, smokes one pack cigarettes per day. Screenin:49 Abuse screen: Denies threats or abuse. Denies injuries from another. Nutritional rv screening: No deficits noted. Tuberculosis screening: No symptoms or risk factors identified. Fall Risk None identified. Assessment: 01:20 Reassessment: patient eloped. boyfriend took her car. patient left with her baby, rv ambulatory. Vital Signs: 00:44 BP 134 / 100; Pulse 89; Resp 18; Temp 98.2; Pulse Ox 99% ; Weight 54.43 kg; Height 5 rv ft. 2 in. (157.48 cm); Pain 10/10; 00:44 Body Mass Index 21.95 (54.43 kg, 157.48 cm) rv ED Course: 00:33 Patient arrived in ED. cl3 00:38 Harry French MD is Attending Physician. pritesh 00:39 Len Daniels, RN is Primary Nurse. rv 00:47 Triage completed. rv 00:48 Arm band placed on right wrist. Patient placed in the treatment room, on a stretcher, rv Patient notified of wait time. 00:49 Patient has correct armband on for positive identification. Pulse ox on. NIBP on. rv 00:59 Inserted saline lock: 18 gauge in left antecubital area, using aseptic technique. Blood rv collected. 01:21 No provider procedures requiring assistance completed. IV discontinued, intact, rv bleeding controlled, No redness/swelling at site. Pressure dressing applied. Administered Medications: No medications were administered Outcome: 01:21 Eloped from patient exam room, before seeing physician Time discovered patient gone: rv July 25, 2020 at 01:22 01:21 Condition: unchanged 01:30 Patient left the ED. rv Signatures: Harry French MD MD pkLen Martines, RN RN rv Nohelia Perez cl3
[2020-07-25 01:45] VITALS: BP 134/100; TEMP 98.2; O2SAT 99
--- OUTSIDE RECORDS SUMMARY | 2020-07-26 17:09 | XMS REPORT | Continuity of Care Document ---
:1995 Author Organization [facility] t Address [address] [place] [address] Care Team Providers Name Role Phone Bull Rutherford Attending Clinician Wilber Riddle Attending Clinician Problems This patient has no known problems. Allergies, Adverse Reactions, Alerts This patient has no known allergies or adverse reactions. Medications This patient has no known medications. Procedures This patient has no known procedures. Encounters Start End Encounter Admission Attending Care Care Encounter Source Date/Time Date/Time Type Type Clinicians Facility Department ID 2020-07-25 2020-07-25 Emergency [facility] [id number] 2021 16:50:00 17:38:00 Latosha Pack [id number] [facility] [id number] [place] [id number] 2020-05-23 2020-05-23 Office [facility] [id number] 14:15:23 16:49:53 Visit Shaista Merino OIL BURNER INSTALLER [id number] [facility] [id number] MATERNAL [id number] & CHILD [address] [place] [address] Results This patient has no known results.
--- OUTSIDE RECORDS SUMMARY | 2020-07-26 17:09 | XMS REPORT | Summary of Care ---
:1995 Author Organization [facility] Address [address] [place] [id number] Care Team Providers Name Role Phone Enrico Fired [facility] Primary Care Provid er MD David Insurance Hmo Reason for Visit Reason Comments Well Woman Exam Encounter Details Date Type Department Care Team Description 05/23/2020 Office Visit [facility] Akinsipe, Shaista Enc ounter for other contraceptive management (Primary Dx); [facility] [address] [place], [place] [id number] [phone] Allergies No Known Allergiesdocumented as of this encounter (statuses as of 05/23/2020) Medications Medication Sig Dispensed Refills Start Date End Date Status simethicone 80 mg Take 2 tablets by 60 tablet 1 03/16/2020 Active chewable mouth after meals tabletIndications: and at bedtime as S/P section needed for Gas. vitamin w/FA Take 1 tablet by 100 tablet 3 03/16/2020 Active tabletIndications: mouth daily. S/P section docusate calcium 240 Take 1 capsule by 60 capsule 1 03/16/2020 Active mg mouth once daily capsuleIndications: as needed for S/P section Constipation. ferrous sulfate 325 Take 1 tablet by 60 tablet 2 03/16/2020 Active mg (65 mg iron) mouth 2 (two) tabletIndications: times daily. S/P section ibuprofen 600 mg Take 1 tablet by 60 tablet 1 03/16/2020 Active tabletIndications: mouth every 6 S/P section (six) hours as needed (Pain). Take with food or milk. HYDROcodone-acetamino Take 1 tablet by 20 tablet 0 03/16/2020 Active phen 5-325 mg mouth every 6 tabletIndications: (six) hours as S/P section needed for Pain (scale 7-10). traMADol 50 mg Take 1 tablet by 20 tablet 0 04/14/2020 Active tabletIndications: mouth every 6 Dental infection (six) hours as needed (pain). ondansetron 4 mg Take 1 tablet by 20 tablet 0 04/14/2020 Active tabletIndications: mouth every 8 Dental infection (eight) hours as needed for Nausea and Vomiting (N/V). documented as of this encounter (statuses as of 05/23/2020) Active Problems Problem Noted Date Well woman exam 05/23/2020 Contraceptive management 05/23/2020 History of bipolar disorder 02/16/2020 Bipolar disorder 11/03/2019 History of trauma 01/30/2016 History of depression 01/30/2016 History of substance abuse 01/30/2016 documented as of this encounter (statuses as of 05/23/2020) Resolved Problems Problem Noted Date Resolved Date affected by growth restriction 03/06/2020 05/23/2020 Oligohydramnios, antepartum 03/06/2020 05/23/2020 32 weeks gestation of 03/04/2020 05/23/20 20 Anemia of mother in , antepartum 02/16/2020 05/23/2020 Drug abuse 11/03/2019 11/03/2019 History of delivery 11/03/2019 05/23/2020 Influenza vaccination declined 11/03/2019 0 BMI 23.0-23.9, adult 11/03/2019 05/23/2020 Supervision of high risk in second trimester 01/2905/23/2020 Multiparity 01/30/2016 05/23/2020 History of miscarriage, currently 01/30/2016 05/23/2020 documented as of this encounter (statuses as of 05/23/2020) Immunizations Name Administration Dates Next Due HPV9 03/15/2020 Influenza Virus Vaccine Quad ID 18-64 YRS 07/17/2017 Influenza Virus Vaccine Quad IM 3+ YRS 01/23/2016 PPD (TB) 01/20/2016 TDAP 01/25/2014 TDAP (ADACEL) VACCINE 02/16/2020 documented as of this encounter Social History Tobacco Use Types Packs/Day Years Used Date Current Some Day Smoker Cigarettes 0.25 Star marin: 11/03/2006 Smokeless Tobacco: Never Used Tobacco Cessation: Ready to Quit: No; Co unseling Given: Yes Alcohol Use Drinks/Week oz/Week Comments Yes 0 Standard drinks or equivalent social Sex Assigned at Date Recorded Not on file COVID-19 Exposure Response Date Recorded In the last month, have you been in contact with No / Unsure 05/23/2020 2:42 PM CDT someone who was confirmed or suspected to have Coronavirus / COVID-19? documented as of this encounter Last Filed Vital Signs Vital Sign Reading Time Taken Comments Blood Pressure 115/79 05/23/2020 2:42 PM CDT Pulse 69 05/23/2020 2:42 PM CDT Temperature 37 C (98.6 F) 05/23/2020 2:42 PM CDT Respiratory Rate 16 05/23/2020 2:42 PM CDT Oxygen Saturation - - Inhaled Oxygen Concentration - - Weight 55.1 kg (121 lb 9 oz) 05/23/2020 2:42 PM CDT Height 157.5 cm (5' 2") 05/23/2020 2:42 PM CDT Body Mass Index 22.23 05/23/2020 2:42 PM CDT documented in this encounter Patient Instructions Patient InstructionsParis Cifuentes LVN - 05/23/2020 2:15 PM CDT Patient Education Clinical Breast Exam Many health organizations recommend a yearly clinical breast exam. This exam may be done by a process design chemical engineer, family healthcare provider, nurse practitioner, nurse car repair supervisor, or specially trained nurse. Yearly breast exams help tomake surethat breast conditions are found early. Your healthcare providers role A healthcare professional knows the tests and follow-up care needed if a problem is found. Your clinical exam is also a great time to ask questions about breast self-exams. You can find out if yourechecking your breasts in the best way. Or you may want to ask how , breast implants, or breast reduction surgery affect the way you should check your breasts. Diagnostic tests If a clinical exam reveals a breast change, you may have other tests to find out more. These tests may include: Mammography. A low-dose X-ray of your breast tissue. Ultrasound. An imaging test that uses sound waves to create images of your breast. Biopsy. A small amount of breast tissue is removed by needle or by a cut (incision). The tissue is then checked under a microscope. Guidelines for having clinical breast exams The [place] [employer] recommends that starting at age 29, you should have a clinical breast exam every 1 to 3 years. After age 40, have a clinical breast exam each year. If youre at higher risk for breast cancer, you may need exams more often. Risk factors for breast cancer may include: Being over 50 or postmenopausal Having a family history of breast cancer Having the BRCA1 or BRCA2 gene mutation or certain other gene mutations Having more menstrual periods due to starting menstruation early(before age 12) or having a late menopause (after age 55) Having no pregnancies Having a first after age 30 Being obese Having a history of radiation treatment to your chest area Exposure to JUSTIN during your mother's Not being active Drinking too much alcohol Having dense breast tissue Taking hormone therapy after menopause Other health organizations have different recommendations. Talk with your healthcare provider about what is best for you. [employer] last reviewed this educational content on 05/19/201719991719-5238 [employer]. [address] [place] [address]. All rights reserved. This information is not intended as a substitute for professional medical care. Always follow your healthcare professional's instructions. Patient Education Breast Health: Breast Self-Awareness What is breast self-awareness? Breast self-awareness is knowing how your breasts normally look and feel. Your breasts change as yougo through different stages of your life. So its important to learn what is normal for your breasts. Knowing about your breasts helps you spot any changes in them right away. Tell your healthcare provider about any changes. Why is breast self-awareness important? Many experts now say that women should focus on breast self-awareness instead of doing a breast self-examination (BSE). These experts include the [place] [employer] and the [place] [employer]ians and Gynecologists. Some experts even advise not teaching women to do a BSE. Thats because research hasnt shown a clear benefit to doing BSEs. Breast self-awareness is different than a BSE. It isnt about following a certain method and schedule. Its about knowing what's normal for your breasts. That way you can spot even small changes right away. If you see any changes, tell your healthcare provider. Changes to look for Call your healthcare provider if you find any changes in your breasts that worry you. These changes may be: A lump Nipple discharge other than breastmilk, especially if it's bloody Swelling A change in size or shape Skin changes, such as redness, thickening, or dimpling of the skin Swollen lymph nodes in the armpit Nipple problems, such as pain or redness If you find a lump Call your provider if you find lumpiness in one breast. Also call if you feel something different inthe tissue or feel a definite lump. Sometimes lumpiness may be due to menstrual changes. But there may be reason for concern. Your provider may want to see you right away if you have: Nipple discharge that is bloody Skin changes on your breast, such as dimpling or puckering Its okay to be upset if you find a lump. Be sure to call your provider right away. Remember that most breast lumps are benign. This means they are not cancer. [employer] last reviewed this educational content on 05/19/201719995565-3183 The [employer]. [address] [place] [address]. All rights reserved. This information is not intended as a substitute for professional medical care. Always follow your healthcare professional's instructions. Patient Education Prevention Guidelines,Women Ages 18 to 39 Screening tests and vaccines are an important part of managing your health. A screening test is doneto find possible disorders or diseases in people who don't have any symptoms. The goal is to find a disease early so lifestyle changes can be made and you can be watched more closely to reduce the riskof disease, or to detect it early enough to treat it most effectively. Screening tests are not considered diagnostic, but are used to determine if more testing is needed. Health counseling is essential, too. Below are guidelines for these, for women ages 18 to 39. Talk with your healthcare provider tomake sure youre up-to-date on what you need. Screening Who needs it How often Alcohol misuse All women in this age group At routine exams Blood pressure All women in this age group Yearly checkup if your blood pressure is normal Normal blood pressure is less than 120/80 mm Hg If your blood pressure reading is higher than normal, follow the advice of your healthcare provider Breast cancer All women in this age group should talk with their healthcare providers about the needfor clinical breast exams (CBE)1 Clinical breast exam every 3 years1 Cervical cancer Women ages 21 and older Women between ages 21 and 29 should have a Pap test every 3 years; women between ages 30 and 65 are advised to have a Pap test plus an HPV test every 5 years Chlamydia Sexually active women ages 25 and younger, and women at increased risk for infection (suchas having multiple sex partners) Every year if you're at risk or have symptoms Depression All women in this age group At routine exams Type 2 diabetes, prediabetes All women with no symptoms who are overweight or obese and have 1 or more other risk factors for diabetes At least every 3 years. Also, testing for diabetes during after the 24th week. Type 2 diabetes, prediabetes All women diagnosed with gestational diabetes Lifelong testing every 3 years Type 2 diabetes All women with prediabetes Every year Gonorrhea Sexually active women at increased risk for infection At routine exams Hepatitis C Anyone at increased risk At routine exams HIV All women should be tested at least once for HIV between the ages of 13 and 64 At routine exams.Those with risk factors for HIV should be tested at least annually. Obesity All women in this age group At routine exams Syphilis Women at increased risk for infection should talk with their healthcare provider At routineexams Tuberculosis Women at increased risk for infection should talk with their healthcare provider Ask your healthcare provider Vision All women in this age group At least 1 complete exam in your 20s, and 2 in your 30s Vaccine2 Who needs it How often Chickenpox (varicella) All women in this age group who have no record of this infection or vaccine 2doses; the second dose should be given 4 to 8 weeks after the first dose Hepatitis A Women at increased risk for infection should talk with their healthcare provider 2 dosesgiven at least 6 months apart Hepatitis B Women at increased risk for infection should talk with their healthcare provider 3 dosesover 6 months; second dose should be given 1 month after the first dose; the third dose should be given at least 2 months after the second dose and at least 4 months after the first dose Haemophilus influenzaeType B (HIB) Women at increased risk for infection should talk with their healthcare provider 1 to 3 doses Human papillomavirus (HPV) All women in this age group up to age 26 3 doses; the second dose should be given 1 to 2 months after the first dose and the third dose given 6 months after the first dose Influenza (flu) All women in this age group Once a year Measles, mumps, rubella (MMR) All women in this age group who have no record of these infections or vaccines 1 or 2 doses Meningococcal Women at increased risk for infection should talk with their healthcare provider 1 or more doses Pneumococcal conjugate vaccine (PCV13)and pneumococcal polysaccharidevaccine(PPSV23) Women at increased risk for infection should talk with their healthcare provider PCV13: 1 dose ages 19 to 65 (protects against 13 types of pneumococcal bacteria) PPSV23: 1 to2 doses through age 64, or 1 dose at 65 or older (protects against 23 types of pneumococcal bacteria) Tetanus/diphtheria/pertussis (Td/Tdap) booster All women in this age group Td every 10 years, or a one-time dose of Tdap instead of a Td booster after age 18, then Td every 10 years Counseling Who needs it How often BRCA gene mutation testing for breast and ovarian cancer susceptibility Women with increased risk for having gene mutation When your risk is known Breast cancer and chemoprevention Women at high risk for breast cancer When your risk is known Diet and exercise Women who are overweight or obese When diagnosed, and then at routine exams Domestic violence Women at the age in which they are able to have children At routine exams Sexually transmitted infection prevention Women who are sexually active At routine exams Skin cancer Prevention of skin cancer in fair-skinned adults At routine exams Use of tobacco and the health effects it can cause All women in this age group Every visit 1 According to the ACS, women ages 20 to 39 years should have a clinical breast exam (CBE) as part of their routine health exam every 3 years. Breast self-exams are an option for women starting in their 20s.But the USPSTF does not recommend CBE. [employer] last reviewed this educational content on 07/19/201719993338-6636 [employer]. [address] [place] [address], [place] [address]. All rights reserved. This information is not intended as a substitute for professional medical care. Always follow your healthcare professional's instructions. Patient Education Understanding STIs When it comes to sex, nothing is risk-free. Any sexual contact with the penis, vagina, anus, or mouth can spread a sexually transmitted infection (STI). These include chlamydia, gonorrhea, herpes, HIV,and genital warts. STIs are also known as sexually transmitted diseases (STDs). The only sure way toprevent STIs is not having sex (abstinence). But there are ways to make sex safer. Use a latex condom each time you have sex. And choose your partner wisely. Use condoms for safer sex If you have sex, latex condoms provide the best protection against STIs. Latex condoms stop the exchange of body fluids that carry certain STIs. They also limit contact with affected skin. Be aware that a condom doesnt cover all skin. So affected skin that isn't covered can still transfer disease. But youre safer with a condom than without one. Use a condom even if you use other control. control methods such as the pill or IUD help prevent , but they don't protect against STIs. Choose the right condom Condoms made of latex prevent disease best. If youre allergic to latex, use polyurethane condoms instead. Male condoms fit over the penis. Female condoms line the vagina. Before buying a condom, read the label to be sure it prevents disease. Some novelty condoms dont. The right lubricant helps Buy lubricated condoms or use lubricant. This provides greater comfort and reduces the risk for condom breakage. Use only water-based lubricants. Dont use oil, lotion, or petroleum jelly. They can weaken the condom, causing breakage. Also, you may want to choose lubricants without nonoxynol-9. This spermicide may cause irritation. It can raise the risk for certain STIs. Use condoms correctly For condoms to work, they must be used the right way. Keep these tips in mind: Use a new latex condom each time you have sex. Slip the condom on the penis before any contact ismade. When ready to withdraw, hold the rim of the condom as the penis pulls out. This prevents the condom from slipping off. Check the expiration date before using a condom. Dont store condoms in places that can get hot, such as a car or a wallet that is carried in a back pocket. Get to know your partner Safer sex is a process. It involves getting to know your partner and making informed choices. Ask each other how many partners you have had in the past, and how many you have now. Find out if either ofyou has HIV or any other STI. If you decide to have sex, use a condom each time. Dont stop using condoms unless youre sure neither of you has other partners and youve both been tested to confirm you dont have HIV or other STIs. Then stay free of disease by having sex only with each other (monogamy). Keep your cool Dont let alcohol or drugs cloud your judgment. They could lead you to have sex with someone you wouldnt have chosen if you were sober. Or you might forget to use a condom. If you do plan to have sex, keep a latex condom with you. Dont wait until youre in the heat of passion to try to find one. Consider abstinence The only way to be sure you wont get an STI is to abstain from sex. Abstinence is a choice that many people make at some point in their life. Maybe you want to wait until you are sure youre readybefore you have sex. Maybe youd like a break from the responsibilities of sex for a while. Or maybe you just want to know your partner better before taking the next step. Abstinence is a choice you can make now to protect your future. [employer] last reviewed this educational content on 09/18/201819991759-0329 [employer]. [address] [place] [address], [place] [address]. All rights reserved. This information is not intended as a substitute for professional medical care. Always follow your healthcare professional's instructions. Patient Education Understanding HIV and AIDS It's important to know how HIV can get into your body and what happens once its there. Then youll be better prepared to protect yourself or others against this virus. A person with HIV can look and feel perfectly healthy. But that person can give HIV to others as soon as he or she is infected with the virus. Having unsafe or unprotected sex or sharing needles puts you at risk for HIV. Talk with your healthcare provider about ways to protect yourself or a loved one from getting HIV. How HIV infection progresses After HIV enters the body, it attacks the immune system in the stages below. A person with HIV can infect others once the virus gets into the blood. HIV with no symptoms. A person with HIV may have no symptoms for years. The only sign of infection may be a positive blood test for HIV 2 weeks to 3 months or later after HIV enters the body. HIV with symptoms. Some people develop an illness similar to mono (mononucleosis) 2 to 4 weeks after the virus enters the body. This is called acute retroviral syndrome. Symptoms may include swollen lymph glands, chills, fever, night sweats, weakness, weight loss, skin rashes, mouth ulcers, or sore t hroat. Symptoms may be mild or the person can feel quite sick. Even without treatment the symptoms almost always go away in a few days or up to 2 to 3 weeks. Then the person has no symptoms, often for years. But over time the immune system starts to get weaker and symptoms start appearing. People at this stage may have a yeast infection in the mouth (oral thrush), shingles, skin problems, pneumonia, diarrhea that keeps coming back, or weight loss. AIDS. AIDS is the most advanced stage of HIV infection, when the immune system is severely weakened.Certain rare diseases and cancers that normally would not occur, now can occur because the body can no longer fight them well enough. It is often these diseases that cause in people with AIDS. HIV may also directly attack the brain and nervous system. This causes seizures and loss of memory and body movement. It also affects many other parts of the body. This leads to problems such as anemia, low white blood cell count, diarrhea, belly pain, skin problems, and many others. How HIV enters the body HIV is carried in semen, vaginal fluid, blood, and breastmilk. During sex, HIV can enter the body. It gets in through the fragile tissue and linings, sores, or cuts in or around the vagina, penis, anus, and mouth. During drug use, tattooing, or body piercing, the virus can enter the blood through an infected needle. A mother who has HIV can infect her child during , childbirth, and . [employer] last reviewed this educational content on 03/19/201919995715-8760 [employer]. [address] [place] [address], [place] [address]. All rights reserved. This information is not intended as a substitute for professional medical care. Always follow your healthcare professional's instructions. Patient Education Eating Heart-Healthy Foods Eating has a big impact on your heart health. In fact, eating healthier can improve several of your heart risks at once. For instance, it helps you manage weight, cholesterol, and blood pressure. Here are ideas to help you make heart- healthy changes without giving up allthe foods and flavors you love. Getting started Talk with your healthcare provider about eating plans, such as the DASH or Mediterranean diet. You may also be referred to a dietitian. Change a few things at a time. Give yourself time to get used to a few eating changes before adding more. Work to create a tasty, healthy eating plan that you can stick to for the rest of your life. Goals for healthy eating Below are some tips to improve your eating habits: Limit saturated fats and trans fats. Saturated fats raise your levels of cholesterol, so keep these fats to a minimum. They are found in foods such as fatty meats, whole milk, cheese, and palm and coconut oils. Avoid trans fats because they lower good cholesterol as well as raise bad cholesterol. Trans fats are most often found in processed foods. Reduce sodium (salt) intake. Eating too much salt may increase your blood pressure. Limit your sodium intake to 2,300 milligrams (mg) per day(the amount in 1 teaspoon of salt), or less if your healthcare provider recommends it. Dining out less often and eating fewer processed foods are two great ways to decrease the amount of salt you consume. Managing calories. A calorie is a unit of energy. Your body mackenzie calories for fuel, but if you eat more calories than your body mackenzie, the extras are stored as fat. Your healthcare provider can help you create a diet plan to manage your calories. This will likely include eating healthier foods as well as exercising regularly. To help you track your progress, keep a diary to record what you eat and how often you exercise. Choose the right foods Aim to make these foods guerrero of your diet. If you have diabetes, you may have different recommendations than what is listed here: Fruits and vegetables provide plenty of nutrients without a lot of calories. At meals, fill half your plate with these foods. Split the other half of your plate between whole grains and lean protein. Whole grains are high in fiber and rich in vitamins and nutrients. Good choices include whole-wheat bread, pasta, and brown rice. Lean proteins give you nutrition with less fat. Good choices include fish, skinless chicken, and beans. Low-fat or nonfat dairy provides nutrients without a lot of fat. Try low-fat or nonfat milk, cheese, or yogurt. Healthy fats can be good for you in small amounts. These are unsaturated fats, such as olive oil,nuts, and fish. Try to have at least 2 servings per week of fatty fish, such as salmon, sardines, mackerel, rainbow trout, and albacore tuna. These contain omega-3 fatty acids, which are good for your heart. Flaxseed is another source of a heart-healthy fat. More on heart-healthy eating Read food labels Healthy eating starts at the grocery store. Be sure to pay attention to food labels on packaged foods. Look for products that are high in fiber and protein, and low in saturated fat, cholesterol, and sodium. Avoid products that contain trans fat. And pay close attention to serving size. For instance, if you plan to eat two servings, double all the numbers on the label. Prepare food right A rader part of healthy cooking is cutting down on added fat and salt. Look on the internet for lower-fat, lower-sodium recipes. Also, try these tips: Remove fat from meat and skin from poultry before cooking. Skim fat from the surface of soups and sauces. Broil, boil, bake, steam, grill, and microwave food without added fats. Choose ingredients that spice up your food without adding calories, fat, or sodium. Try these items: horseradish, hot sauce, lemon, mustard, nonfat salad dressings, and vinegar. For salt-free herbs and spices, try basil, cilantro, cinnamon, pepper, and lidya. [employer] last reviewed this educational content on 07/19/201719992597-6173 The [employer]. [address] [place] [address]. All rights reserved. This information is not intended as a substitute for professional medical care. Always follow your healthcare professional's instructions. Patient Education Understanding USDA MyPlate The USDA (U.S. Department of Agriculture) has guidelines to help you make healthy food choices. These are called MyPlate. MyPlate shows the food groups that make up healthy meals using the image of a place setting. Before you eat, think about the healthiest choices for what to put onto your plate or into your cup or bowl. To learn more about building a healthy plate, visit www.choosemyplate.gov. The food groups Fruits. Any fruit or 100% fruit juice counts as part of the Fruit Group. Fruits may be fresh, canned, frozen, or dried, and may be whole, cut-up, or pureed. Make half your plate fruits and vegetables. Vegetables. Any vegetable or 100% vegetable juice counts as a member of the Vegetable Group. Vegetables may be fresh, frozen, canned, or dried. They can be served raw or cooked and may be whole, cut-up, or mashed. Make half your plate fruits and vegetables. Grains. All foods made from grains are part of the Grains Group. These include wheat, rice, oats,cornmeal, and barley such as bread, pasta, oatmeal, cereal, tortillas, and grits. Grains should be no more than a quarter of your plate. At least half of your grains should be whole grains. Protein. This group includes meat, poultry, seafood, beans and peas, eggs, processed soy products(like tofu), nuts (including nut butters), and seeds. Make protein choices no more than a quarter ofyour plate. Meat and poultry choices should be lean or low fat. Dairy. All fluid milk products and foods made from milk that contain calcium, like yogurt and cheese, are part of the Dairy Group. (Foods that have little calcium, such as cream, butter, and cream cheese, are not part of the group.) Most dairy choices should be low-fat or fat-free. Oils. These are fats that are liquid at room temperature. They include canola, corn, olive, soybean, and sunflower oil. Foods that are mainly oil include mayonnaise, certain salad dressings, and soft margarines. You should have only 5 to 7 teaspoons of oils a day. You probably already get this muchfrom the food you eat. [employer] last reviewed this educational content on 05/19/201719994303-7818 The [employer]. [address] [place] [address], [place] [address]. All rights reserved. This information is not intended as a substitute for professional medical care. Always follow your healthcare professional's instructions. 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 She is not . No, her partner does not have an STD. She uses progestin injections for contraception. Patient reports that priorto today's visit, her form of control was 3 month hormonal injection. After this visit, patient's form of control will be 3 month hormonal injection. Patient reports sexually active. HPI: the patient is here today for WWE and contraceptive management. She reports she is doing well today with no issues or concerns today. She declines the need for STI testing today and reports no new sexual partners. She reports she is currently on depo for control and states she received herfirst dose after delivery of her infant. Pt (denies) current or past physical, sexual or emotional abuse. Histories OB History Para Term AB Living 7 4 1 3 3 4 SAB TAB Ectopic Multiple Live Births 3 0 4 # Outcome Date GA Lbr Michele/2nd Weight Sex Delivery Anes PTL Lv 7 03/15/20 32w3d 4 lb 6.7 oz (2.005 kg) M , L Spinal N ALVAREZ 6 SAB 11/27/18 8w0d 5 Term 08/06/17 37w0d 6 lb 14 oz (3.118 kg) M NORMAL SPONT ALVAREZ 4 08/25/16 36w0d 6 lb 4 oz (2.835 kg) M NORMAL SPONT ALVAREZ 3 SAB 2014 7w0d 2 2013 20w0d M Y 1 12/29/11 36w0d 7 lb 2 oz (3.232 kg) M NSVB LOW EPI N ALVAREZ Past Medical History: Diagnosis Date Anemia of mother in , antepartum 02/16/2020 Anxiety resolved Depression resolved Substance abuse Trauma 2015 Family History Problem Relation Age of Onset Asthma Sister Depression Sister Mental retardation Maternal Aunt Diabetes Maternal Grandfather Hypertension Maternal Grandfather No Significant Medical Problems Brother Diabetes Maternal Uncle Arthritis NoFHx defects NoFHx Breast Cancer NoFHx Colon Cancer NoFHx Ovarian Cancer NoFHx Uterine Cancer NoFHx Cancer NoFHx Genetic NoFHx Heart NoFHx High cholesterol NoFHx Neurological NoFHx Osteoporosis NoFHx Psychiatry NoFHx Other - see comments NoFHx Family Status Relation Name Status Sis Alive MAunt Alive MGFa Alive Mo Alive Fa Alive Bro Alive MUnc Alive PAunt Alive PUnc Alive MGMo Alive PGMo Alive PGFa Alive NoFHx (Not Specified) Past Surgical History: Procedure Laterality Date SECTION N/A 03/15/2020 Surgeon: Ann Marie Vargas MD; Location: [facility] and Delivery - [facility] CHOLECYSTECTOMY OTHER 2015 jaw Social History Socioeconomic History Marital status: Single Spouse name: Not on file Number of children: 1 Years of education: Not on file Highest education level: Not on file Occupational History Occupation: none Social Needs Financial resource strain: Not on file Food insecurity Worry: Not on file Inability: Not on file Transportation needs Medical: Not on file Non-medical: Not on file Tobacco Use Smoking status: Current Some Day Smoker Packs/day: 0.25 Types: Cigarettes Start date: 11/03/2006 Smokeless tobacco: Never Used Substance and Sexual Activity Alcohol use: Yes Comment: social Drug use: Not Currently Types: Other-see comments Comment: synthetic marijuana Sexual activity: Yes Partners: Male control/protection: None Comment: last sexual intercourse 10/13/2019 Lifestyle Physical activity Days per week: Not on file Minutes per session: Not on file Stress: Not on file Relationships Social connections Talks on phone: Not on file Gets together: Not on file Attends shinto service: Not on file Active member of club or organization: Not on file Attends meetings of clubs or organizations: Not on file Relationship status: Not on file Intimate partner violence Fear of current or ex partner: Not on file Emotionally abused: Not on file Physically abused: Not on file Forced sexual activity: Not on file Other Topics Concern Service Not Asked Blood Transfusions No Caffeine Concern Not Asked Occupational Exposure Not Asked Hobby Hazards Not Asked Sleep Concern Not Asked Stress Concern Not Asked Weight Concern Not Asked Special Diet Not Asked Back Care Not Asked Exercise Not Asked Bike Helmet Not Asked Seat Belt Not Asked Self-Exams Not Asked Social History Narrative Zoroastrianism preference is Yazidi. Patient lives with mother and child. Patient lives 1 cat, mother does litter box. Social History Substance and Sexual Activity Sexual Activity Yes Partners: Male control/protection: None Comment: last sexual intercourse 10/13/2019 Labs No new labs and Admission on 03/04/2020, Discharged on 03/16/2020 Component Date Value SARS-CoV-2 Rapid ID NOW 03/04/2020 Not Detected URINE CULTURE 03/04/2020 No aerobic growth (< 1000 CFU/mL) APPEARANCE 03/04/2020 Clear COLOR 03/04/2020 Yellow PH 03/04/2020 7.0 SP GRAVITY 03/04/2020 1.008 GLU U QUAL 03/04/2020 Normal BLOOD 03/04/2020 Negative KETONES 03/04/2020 Negative PROTEIN 03/04/2020 Negative UROBILIN 03/04/2020 Normal BILIRUBIN 03/04/2020 Negative NITRITE 03/04/2020 Negative LEUK DERRICK 03/04/2020 Negative RBC/HPF 03/04/2020 1 WBC/HPF 03/04/2020 1 BACTERIA 03/04/2020 Negative SQ EPITH 03/04/2020 <1 C. trachomatis Nucleic A* 03/04/2020 Negative N. gonorrhoeae Nucleic A* 03/04/2020 Negative Syphilis IgG/IgM 03/04/2020 Non-reactive HIV 1/2 Ag-Ab with Reflex 03/04/2020 Negative HIV Semi-quantitative 03/04/2020 0.08 WBC 03/04/2020 12.69* RBC 03/04/2020 3.33* HGB 03/04/2020 9.9* HCT 03/04/2020 30.0* MCV 03/04/2020 90.1 MCH 03/04/2020 29.7 MCHC 03/04/2020 33.0 RDW-SD 03/04/2020 42.1 RDW-CV 03/04/2020 12.8 PLT 03/04/2020 299 MPV 03/04/2020 10.2 NRBC/100 WBC 03/04/2020 0.0 NRBC x10^3 03/04/2020 <0.01 GRAN MAT (NEUT) % 03/04/2020 70.2 IMM GRAN % 03/04/2020 1.30 LYMPH % 03/04/2020 18.4 MONO % 03/04/2020 8.9 EOS % 03/04/2020 0.8 BASO % 03/04/2020 0.4 GRAN MAT x10^3(ANC) 03/04/2020 8.92* IMM GRAN x10^3 03/04/2020 0.16* LYMPH x10^3 03/04/2020 2.33 MONO x10^3 03/04/2020 1.13* EOS x10^3 03/04/2020 0.10 BASO x10^3 03/04/2020 0.05 ABO & RH 03/04/2020 O POSITIVE IAT 03/04/2020 Negative HBsAg 03/04/2020 Negative HBsAg Semi-Quantitative 03/04/2020 0.05 Group B Streptococcus by* 03/04/2020 Negative ABO & RH 03/08/2020 O POSITIVE IAT 03/08/2020 Negative ABO & RH 03/12/2020 O POSITIVE IAT 03/12/2020 Negative WBC 03/14/2020 17.42* RBC 03/14/2020 3.22* HGB 03/14/2020 9.4* HCT 03/14/2020 28.6* MCV 03/14/2020 88.8 MCH 03/14/2020 29.2 MCHC 03/14/2020 32.9 RDW-SD 03/14/2020 40.1 RDW-CV 03/14/2020 12.3 PLT 03/14/2020 268 MPV 03/14/2020 10.7 NRBC/100 WBC 03/14/2020 0.0 NRBC x10^3 03/14/2020 <0.01 GRAN MAT (NEUT) % 03/14/2020 74.6 IMM GRAN % 03/14/2020 1.40 LYMPH % 03/14/2020 12.2 MONO % 03/14/2020 10.8 EOS % 03/14/2020 0.7 BASO % 03/14/2020 0.3 GRAN MAT x10^3(ANC) 03/14/2020 12.97* IMM GRAN x10^3 03/14/2020 0.25* LYMPH x10^3 03/14/2020 2.13 MONO x10^3 03/14/2020 1.88* EOS x10^3 03/14/2020 0.13 BASO x10^3 03/14/2020 0.06 BASE EXCESS, CORD 03/15/2020 -2.4 AC PH, CORD (BEAKER) 03/15/2020 7.31 PC02, CORD 03/15/2020 49 PO2, CORD 03/15/2020 23 BICARBONATE, CORD 03/15/2020 24 VENOUS BASE EXCESS, CORD 03/15/2020 -0.6 VENOUS PH, CORD 03/15/2020 7.38 VENOUS PC02, CORD 03/15/2020 43 VENOUS PO2, CORD 03/15/2020 36 VENOUS BICARBONATE, CORD 03/15/2020 25 Syphilis IgG/IgM 03/15/2020 Non-reactive HBsAg 03/15/2020 Negative HBsAg Semi-Quantitative 03/15/2020 0.05 RHIG CANDIDATE? 03/12/2020 No- see comment WBC 03/16/2020 14.37* RBC 03/16/2020 3.01* HGB 03/16/2020 8.8* HCT 03/16/2020 26.8* MCV 03/16/2020 89.0 MCH 03/16/2020 29.2 MCHC 03/16/2020 32.8 RDW-SD 03/16/2020 41.1 RDW-CV 03/16/2020 12.7 PLT 03/16/2020 203 MPV 03/16/2020 10.1 NRBC/100 WBC 03/16/2020 0.0 NRBC x10^3 03/16/2020 <0.01 GRAN MAT (NEUT) % 03/16/2020 82.3 IMM GRAN % 03/16/2020 1.10 LYMPH % 03/16/2020 8.2 MONO % 03/16/2020 6.8 EOS % 03/16/2020 1.3 BASO % 03/16/2020 0.3 GRAN MAT x10^3(ANC) 03/16/2020 11.82* IMM GRAN x10^3 03/16/2020 0.16* LYMPH x10^3 03/16/2020 1.18* MONO x10^3 03/16/2020 0.98* EOS x10^3 03/16/2020 0.18 BASO x10^3 03/16/2020 0.05 Radiology No new radiology. Allergies Susanna has No Known Allergies. Medications Susanna has a current medication list which includes the following prescription(s): ondansetron, tramadol, docusate calcium, ferrous sulfate, hydrocodone-acetaminophen, ibuprofen, vitamin w/fa,and simethicone. Review of Systems Constitutional: Negative. HENT: Negative. Eyes: Negative. Respiratory: Negative. Breasts: Negative. Cardiovascular: Negative. Gastrointestinal: Negative. Genitourinary: Negative. Musculoskeletal: Negative. Skin: Negative. Neurological: Negative. Psychiatric/Behavioral: Negative. Endocrine: Endocrine negative BP 115/79 (BP Location: Right arm, Patient Position: Sitting, BP CUFF SIZE: Adult Medium) | Pulse 69 | Temp 37 C (98.6 F) (Oral) | Resp 16 | Ht 5' 2" (1.575 m) | Wt 121 lb 9 oz (55.1 kg) | LMP 07/08/2019 (Approximate) | No | BMI 22.23 kg/m Pregravid BMI: 20.66 Physical Exam Vitals reviewed. Constitutional: She is oriented to person, place, and time. She appears well- developed and well-nourished. Her body habitus is normal. Cardiovascular: Regular rate and rhythm. No peripheral edema present. Pulmonary/Chest: Normal inspiratory effort. Neuro/Psychiatric: She has a normal mood and affect. She is oriented to person, place, and time. Skin: Skin normal. No lesion, no rash and no ulceration present. Genitourinary Comments: Declined pap today reporting she is on her menses Mejia BEATTY student present during exam Breast: Right breast exhibits no mass, no nipple discharge and no tenderness. Left breast exhibits no mass, no nipple discharge and no tenderness. Breasts are symmetrical. Normal left breast and normalright breast Assessment/Plan Return to clinic in 4 months for HPV Return in 2 weeks for pap/depo Return in 1 year for WWE or sooner as needed Rubella/VZV: immune BMI 22 Td 2019 Pap Smear: postponed Gardasil: pending 2nd dose Mammogram/Guaiac/Colonoscopy : na Encounter for other contraceptive management (primary encounter diagnosis) Comment: depo Plan: as needed mgmt Well woman exam Comment: routine Plan: return i 1 year This visit did not involve counseling and coordination that comprised more than 50% of the visit time. LAUREN Dowd 05/23/2020 3:20 PM Paris Cifuentes LVN - 05/23/2020 2:15 PM CDT25 year old presented to the clinic for WWE. 1) Previous BCM:depo 2) Desired BCM:depo 3) LMP:06/2019 4) Last [place]:2020 5) Last Pap:01/23/2016 Results:negative 6) Tdap in last 10 years?02/16/2020 HPV?one dose 03/15/2020 7) C/O Bleeding 9 weeks after delivery, pain to upper mid abdomen 8) Patient denies history of physical, emotional, or sexual abuse. Patient states she currently feels safe at home. documented in this encounter Plan of Treatment Date Type Specialty Care Team Description 06/06/2020 Office Visit [facility] [address], [place] [address] [phone] Health Maintenance Due Date Last Done Comments PAP SMEAR 01/22/2019 01/23/2016 INFLUENZA VACCINE (#1) 2020 01/23/2016 Depression Screening 02/15/2021 02/16/2020 DTaP,Tdap,and Td Vaccines (3 - Td) 02/15/2030 02/16/2020, 0 01/25/2014 PNEUMOCOCCAL 0-64 YEARS COMBINED SERIES Discontinued documented as of this encounter Results Not on filedocumented in this encounter Visit Diagnoses Diagnosis Encounter for other contraceptive manage ment - Primary Well woman exam Routine general medical examination at a health care facility documented in this encounter Insurance Payer Benefit Plan / Subscriber ID Effective Dates Phone Addre ss Type Group [facility] [id number] 2019-Present Medicaid COMM PLAN - MANAGED MEDICAID documented as of this encounter
--- OUTSIDE RECORDS SUMMARY | 2020-07-26 17:10 | XMS REPORT | Summary of Care ---
:1995 Author Organization [facility] Address [address] [place] [address] Care Team Providers Name Role Phone [facility] Primary Care Provid er MD David Insurance Hmo Reason for Visit Reason Comments Well Woman Exam Encounter Details Date Type Department Care Team Description 05/23/2020 Office Visit [facility] [place], Shaista Enc ounter for other contraceptive management (Primary Dx); Ramone Merino, [facility] Well woman exam; [address] Need for HPV vaccination [place], [place] [phone] Allergies No Known Allergiesdocumented as of this [...] Immunizations Name Administration Dates Next Due HPV9 05/23/2020, 03/15/2020 Influenza Virus Vaccine Quad ID [id number] [...] This exam may be done by a gis engineer, family healthcare provider, nurse practitioner, nurse safety associate, or specially trained nurse. Yearly breast exams [...] Guidelines for having clinical breast exams The [employer] Gynec[employer] recommends that [...] provider about what is best for you. [employer] last reviewed this educational content on 05/19/201719996861-8940 The [employer]. [address] [place] [address]. All rights reserved. This information is not [...] breast self-examination (BSE). These experts include the [place] [employer] and the [place] [employer] Obst[employer]ians [employer] Gynecologists. Some experts [...] benign. This means they are not cancer. [employer] last reviewed this educational content on 05/19/201719998212-3985 [employer]. [address] [place] [address]. All rights reserved. This information is not [...] 20s.But the USPSTF does not recommend CBE. [employer] last reviewed this educational content on 07/19/201719992616-6772 [employer]. [address] [place] [address], [place] [address]. All rights reserved. This information is not [...] can make now to protect your future. [employer] last reviewed this educational content on 09/18/201819992899-8674 [employer]. [address] [place] [address], [place] [address]. All rights reserved. This information is not [...] her child during , childbirth, and . [employer] last reviewed this educational content on 03/19/201919999558-5696 The [employer], [employer]. [address] [place] [address], [place] [address]. All rights reserved. This information is not [...] try basil, cilantro, cinnamon, pepper, and lidya. [employer] last reviewed this educational content on 07/19/201719995131-7614 [employer]. [address] [place] [address]. All rights reserved. This information is not [...] get this muchfrom the food you eat. [employer] last reviewed this educational content on 05/19/201719995390-0108 [employer]. [address] [place] [address], [place] [address]. All rights reserved. This information is not intended as a substitute for professional medical care. Always follow your healthcare professional's instructions. 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 Pt (denies) current or past physical, sexual [...] MD; Location: Labor and Delivery - [facility] [place] CHOLECYSTECTOMY OTHER 2015 jaw Social History Socioeconomic [...] file Gets together: Not on file Attends oriental orthodox service: Not on file Active member of [...] Asked Self-Exams Not Asked Social History Narrative Pentecostalism preference is Oriental Orthodox. Patient lives with mother and child. Patient [...] as needed Rubella/VZV: immune BMI 22 Td 2020 Pap Smear: postponed Gardasil: pending 2nd dose [...] 2) Desired BCM:depo 3) LMP:06/2019 4) Last [place]:2020 5) Last Pap:01/23/2016 Results:negative 6) Tdap in last 10 years?02/16/2020 HPV?one dose 03/15/2020 7) C/O Bleeding 9 weeks after delivery, pain to upper mid abdomen 8) Patient denies history of physical, emotional, or sexual abuse. Patient states she currently feels safe at home. documented in this encounter Miscellaneous Notes Addendum Note - Isrrael Mejia RN - 05/23/2020 2:15 PM CDT Addended by: ISRRAEL MEJIA RN on: 05/23/2020 04:49 PM Modules accepted: Orders documented in this encounter Plan of Treatment Date Type Specialty Care Team Description 06/06/2020 Office Visit [facility]ell[facility] Mis Darling, [facility] [address] [place] [address] [phone] Health Maintenance Due Date Last Done Comments PAP SMEAR 01/22/2019 01/23/2016 INFLUENZA VACCINE (#1) 2020 01/23/2016 Depression Screening 02/15/2021 02/16/2020 DTaP,Tdap,and Td Vaccines (3 - Td) 02/15/2030 02/16/2020, 0 01/25/2014 PNEUMOCOCCAL 0-64 YEARS COMBINED SERIES Discontinued documented as of this encounter Procedures Procedure Name Priority Date/Time Associated Diagnosis Comme nts GARDASIL 9 (HPV 9V) Routine 05/23/2020 4:48 PM Need for HPV VACCINE CDT vaccination documented in this encounter Results Not on filedocumented in this encounter Visit Diagnoses Diagnosis Encounter for other contraceptive manage ment - Primary Well woman exam Routine general medical examination at a health care facility Need for HPV vaccination Need for prophylactic vaccination and in oculation against other viral diseases documented in this encounter Insurance Payer Benefit Plan / Subscriber ID Effective Dates Phone Addre ss Type Group [facility] [id number] 2019-Present Medicaid COMM PLAN - MANAGED MEDICAID documented as of this encounter
--- OUTSIDE RECORDS SUMMARY | 2020-07-26 17:10 | XMS REPORT | Summary of Care ---
:1995 Author Organization [facility] Address [address] [place] [address] Care Team Providers Name Role Phone Enrico Fried [facility] Primary Care Provid er MD David Insurance Hmo Reason for Visit Reason Comments Well Woman Exam Encounter Details Date Type Department Care Team Description 05/23/2020 Office Visit [facility] [place] [facility]- Akinsipe, Shaista Enc ounter for other contraceptive management (Primary Dx); Ramone Merino, [facility] Well woman exam [address] [place], [place] [phone] Allergies No Known Allergiesdocumented as of this [...] This exam may be done by a jewelry maker, family healthcare provider, nurse practitioner, nurse white washer piler, or specially trained nurse. Yearly breast exams [...] Guidelines for having clinical breast exams The [employer] recommends that [...] provider about what is best for you. [employer] last reviewed this educational content on 05/19/201719997469-1562 The [employer]. [address] [place] [address]. All rights reserved. This information is not [...] breast self-examination (BSE). These experts include the [employer] and the [place] [employer]st[employer] Gynecologists. Some experts [...] benign. This means they are not cancer. [employer] last reviewed this educational content on 05/19/201719999228-1907 The [employer], [employer]. [address] [place] [address]. All rights reserved. This information is not [...] 20s.But the USPSTF does not recommend CBE. [employer] last reviewed this educational content on 07/19/201719995523-6259 [employer]. [address] [place] [address], [place] [address]. All rights reserved. This information is not [...] can make now to protect your future. [employer] last reviewed this educational content on 09/18/201819998779-0749 [employer]. [address] [place] [address], [place] [address]. All rights reserved. This information is not [...] her child during , childbirth, and . [employer] last reviewed this educational content on 03/19/201919990503-8330 [employer]. [address] [place] [address], [place] [address]. All rights reserved. This information is not [...] try basil, cilantro, cinnamon, pepper, and lidya. [employer] last reviewed this educational content on 07/19/201719996346-2494 [employer]. [address] [place] [address]. All rights reserved. This information is not [...] get this muchfrom the food you eat. [employer] last reviewed this educational content on 05/19/201719992138-8840 [employer]. [address] [place] [address], [place] [address]. All rights reserved. This information is not intended as a substitute for professional medical care. Always follow your healthcare professional's instructions. 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 Patient lives with mother and child. Patient [...] 2) Desired BCM:depo 3) LMP:06/2019 4) Last [place]:2020 5) Last Pap:01/23/2016 Results:negative 6) Tdap in last 10 years?02/16/2020 HPV?one dose 03/15/2020 7) C/O Bleeding 9 weeks after delivery, pain to upper mid abdomen 8) Patient denies history of physical, emotional, or sexual abuse. Patient states she currently feels safe at home. documented in this encounter Plan of Treatment Date Type Specialty Care Team Description 06/06/2020 Office Visit [facility] Mis Darling, [facility] [address] [place], [place] [address] [phone] Health Maintenance Due Date Last Done Comments [...] Effective Dates Phone Addre ss Type Group [facility] [id number] 2019-Present Medicaid COMM PLAN - MANAGED MEDICAID documented as of this encounter
== END 2020-07-25 01:30 | disposition left against medical advice (07) ==
LOC: ER 00:32
DX: Z53.21 Procedure and treatment not carried out due to patient leaving prior to being seen by health care provider (principal)
CPT/HCPCS: 99283

== ENCOUNTER 2020-08-26 11:11 | Emergency (ER) | payer OTHER ==
--- OUTSIDE RECORDS SUMMARY | 2020-08-26 11:13 | XMS REPORT | Continuity of Care Document ---
:1995 Author Organization [facility] Address [address] [place] [address] Care Team Providers Name Role Phone Bull [...] Clinicians Facility Department ID 2020-07-25 2020-07-25 Emergency [facility] [id number] 2021 16:50:00 17:38:00 Latosha Pack [id number] [place] [id number] [place] [id number] [id number] 2020-05-23 2020-05-23 Office Lisset [facility] [id number] 14:15:23 16:49:53 Visit Shaista Merino MANAGER HOME [id number] [facility] [id number] MATERNAL [phone] & CHILD [address] [place] [address] Results This patient has no known results.
--- OUTSIDE RECORDS SUMMARY | 2020-08-26 11:13 | XMS REPORT | Summary of Care ---
:1995 Author Organization [facility] Address [address] [place] [address] Care Team Providers Name Role Phone Enrico Fried [facility] Primary Care Provid er MD David Insurance Hmo Reason for Visit Reason Comments Pain above rectum Auth/Cert Status Reason Specialty Diagnoses / Referred By Referred To Procedures Contact Contact Emergency Medicine [facility] Em ergency Dept [address] [place] [address] Fax: Encounter Details Date Type Department Care Team Description 07/25/2020 Emergency ADC-Emergency Latosha Quigley R, Anal fissu re (Primary Dx); Department EMNP External hemorrhoid [address] [place] [address] [id number] [place], [place] [id number] Allergies No Known Allergiesdocumented as of this encounter (statuses as of 07/25/2020) Medications Medication Sig Dispensed Refills Start Date [...] as of this encounter (statuses as of 07/25/2020) Active Problems Problem Noted Date Well woman exam 05/23/2020 Contraceptive management 05/23/2020 History of bipolar disorder 02/16/2020 Bipolar disorder 11/03/2019 History of trauma 01/30/2016 History of depression 01/30/2016 History of substance abuse 01/30/2016 documented as of this encounter (statuses as of 07/25/2020) Resolved Problems Problem Noted Date Resolved Date [...] as of this encounter (statuses as of 07/25/2020) Immunizations Name Administration Dates Next Due HPV9 05/23/2020, 03/15/2020 Influenza Virus Vaccine Quad ID 18-64 YRS 07/17/2017 Influenza Virus Vaccine Quad IM 3+ YRS 01/23/2016 PPD (TB) 01/20/2016 TDAP 01/25/2014 TDAP (ADACEL) VACCINE 02/16/2020 documented as of this encounter Social History Tobacco Use Types Packs/Day Years Used Date Current Some Day Smoker Cigarettes 0.25 Star marin: 11/03/2006 Smokeless Tobacco: Never Used Alcohol Use Drinks/Week oz/Week Comments Yes 0 Standard drinks or equivalent social Sex Assigned at Date Recorded Not on file COVID-19 Exposure Response Date Recorded In the last month, have you been in contact with No / Unsure 07/25/2020 4:44 PM CDT someone who was confirmed or suspected to have Coronavirus / COVID-19? documented as of this encounter Last Filed Vital Signs Vital Sign Reading Time Taken Comments Blood Pressure 133/96 07/25/2020 4:46 PM CDT Pulse 83 07/25/2020 4:46 PM CDT Temperature 37.6 C (99.7 F) 07/25/2020 4:46 PM CDT Respiratory Rate 18 07/25/2020 4:46 PM CDT Oxygen Saturation 97% 07/25/2020 4:46 PM CDT Inhaled Oxygen Concentration - - Weight 54.4 kg (120 lb) 07/25/2020 4:46 PM CDT Height 157.5 cm (5' 2") 07/25/2020 4:46 PM CDT Body Mass Index 21.95 07/25/2020 4:46 PM CDT documented in this encounter Discharge Instructions Latosha Lorenzo EMNP - 07/25/2020NO LIFE-THREATENING FINDINGS ON TODAY'S EXAM. SPECIAL INSTRUCTIONS: 1. See attached information regarding hemorrhoid and anal fissure 2. Warm bath soaks 3. May use over the counter hemorrhoid creams/pads (preparation H or tucks pads 4. Recommend taking colace stool softeners and taking miralax daily 5. Sit on donut pillow for comfort 6. Return for fever, increased swelling bloody stools or any other concern FOLLOW-UP RECOMMENDATIONS: RECOMMEND FOLLOW-UP WITH A PRIMARY CARE PROVIDER OR SPECIALIST IN 2-5 DAYS, ESPECIALLY IF NO IMPROVEMENT IN SYMPTOMS. TO FOLLOW-UP WITHIN THE [facility], TRY THESE OPTIONS (CLINIC APPOINTMENTS AVAILABLE ON [id number] BASIS): 1. SCHEDULE AN APPOINTMENT ONLINE AT WWW.[facility] 2. OR CALL THE [facility] ACCESS CENTER AT OR 3. OR CALL YOUR [facility] PHYSICIAN'S OFFICE DIRECTLY IF YOU ARE ALREADY AN ESTABLISHED [facility] PATIENT. OR, YOU MAY FOLLOW-UP WITH A PROVIDER OF YOUR CHOICE, SUCH : 1. A PHYSICIAN OF YOUR CHOICE 2. MEDICINE [facility], . LOCATIONS IN [facility] 3. [facility], [address] [place], [place]; [phone] RETURN TO ER FOR WORSENING OF SYMPTOMS. AttachmentsThe following attachments cannot be sent through Care Everywhere. Hemorrhoids (Bulgarian)Hemorrhoids, Understanding (Bulgarian)Understanding Anal Fissures (Bulgarian)documented in this encounter ED Notes Lissette Wesley RN - 07/25/2020 4:44 PM CDTCC: Pt presents to ER from home with complaints of pain right above her rectum x 5 days. She denies, an opening, draining, or trauma. PMHx: denies PSH: Cholie MEDS: Denies LMP: 06/28 Tetanus: Not UTD Awake, alert, oriented, resp reg unlabored, skin warm, color appropriate for race, moves all ext without difficulty, amb without assist Appears in mild distress Latosha Whitmore EMNP - 07/25/2020 4:38 PM CDT [facility] Emergency Department Note Patient Name: Susanna Genao Date of : 1995 25 year old female Treatment Room: [address] Primary Care Physician: Mason Fried [facility] Patient Escorted by: Self [9] Mode of Arrival: Personal means [1] EMS Treatment Prior to ED Arrival: Travel and Exposure Screening: Symptoms Does patient have any of these symptoms?: (not recorded) Exposure Screening Has patient had contact with someone with a communicable disease in the last month?: (not recorded) Diseases exposed to:: (not recorded) Is Patient ?: (not recorded) Exposure Date: (not recorded) Chief Complaint: Chief Complaint Patient presents with Pain above rectum History of Present Illness: 5 days Past Medical History/Immunizations: Past Medical History: Diagnosis Date Anemia of mother in , antepartum 02/16/2020 Anxiety resolved Depression resolved Substance abuse Trauma 2014 Allergies: No Known Allergies Past Social History: Tobacco Use Current Some Day Smoker; Started 11/03/2006; Smokes 0.25 packs/day; Smoked: Cigarettes. Smokeless Tobacco: Never used smokeless tobacco. Alcohol Use Yes. Comments: social Drug Use Not Currently; Other-see comments. Comments: synthetic marijuana Sexual Activity Sexually active; Partners: Male; Control/Protection: None. Comments: last sexual intercourse 10/13/2019 Past Surgical History: Past Surgical History: Procedure Laterality Date SECTION N/A 03/15/2020 Surgeon: Ann Marie Vargas MD; Location: Labor and Delivery - [place] CHOLECYSTECTOMY OTHER 2014 jaw Review of Systems: Review of Systems Physical Exam: ED Triage Vitals [07/25/20 1646] Weight 54.4 kg (120 lb) Actual or estimated Actual Height 1.575 m (5' 2") BP (!) 133/96 Pulse 83 Resp 18 Temp 37.6 C (99.7 F) Temp source Oral SpO2 97 % Measured on Room air Physical Exam Radiology: No results found for this visit on 07/25/20. Lab Results (24h): No results found for this or any previous visit (from the past 24 hour(s)). Orders and Treatments: No orders of the defined types were placed in this encounter. No orders of the defined types were placed in this encounter. ED COURSE ED Course as of Jul 25 1720 Wed Jul 25, 2020 1719 Patient with external hemorroid noted, no sign of abscess, pilonidal cyst. Suspected anal fissure given constipation hx. No active bleeding. Supportive care [MM] ED Course User Index [MM] Latosha Quigley EMNP MDM: MDM Reviewed: nursing note and vitals Diagnosis/Impression: ICD-10-CM ICD-9-CM 1. Anal fissure K60.2 565.0 2. External hemorrhoid K64.4 455.3 Disposition/Condition: ED Disposition ED Disposition Condition Comment Disch - Home Stable Discharge Medications: Patient's Medications START taking these medications No medications on file CONTINUE taking these medications which have NOT CHANGED DOCUSATE CALCIUM 240 MG CAPSULE Take 1 capsule by mouth once daily as needed for Constipation. FERROUS SULFATE 325 MG (65 MG IRON) TABLET Take 1 tablet by mouth 2 (two) times daily. HYDROCODONE-ACETAMINOPHEN 5-325 MG TABLET Take 1 tablet by mouth every 6 (six) hours as needed for Pain (scale 7-10). IBUPROFEN 600 MG TABLET Take 1 tablet by mouth every 6 (six) hours as needed (Pain). Take with food or milk. ONDANSETRON 4 MG TABLET Take 1 tablet by mouth every 8 (eight) hours as needed for Nausea and Vomiting (N/V). VITAMIN W/FA TABLET Take 1 tablet by mouth daily. SIMETHICONE 80 MG CHEWABLE TABLET Take 2 tablets by mouth after meals and at bedtime as needed for Gas. TRAMADOL 50 MG TABLET Take 1 tablet by mouth every 6 (six) hours as needed (pain). START taking Modified Medications as Prescribed No medications on file STOP taking these medications No medications on file Follow-up: Contact information for follow-up [facility] Relationship: PCP - General [address] [place] [phone] Instructions: If symptoms worsen Electronically signed by: BELL Antonio 07/25/2020 4:58 PM documented in this encounter Miscellaneous Notes ED Nurse Note - Selma Zavala RN - 07/25/2020 5:35 PM CDTPt given printed and verbal discharge instructions regarding anorectal fissure, external hemmoroids, encouraged hydration, 0 Prescriptions provided Discussed ibuprofen and to take with food to avoid GI distress. Pt verbalized understanding of instructions, pt awake alert oriented, resp reg unlabored, skin w/d, color appropriate for race, moves all ext well,pt encouraged to follow up with PCP. Advised to seek medical attention for new/prolonged/worsening of symptoms, Awake, alert oriented, resp reg unlabored, skin w/d, pt leaving amb with steady gait, in no apparent distress, documented in this encounter Plan of Treatment Health Maintenance Due Date Last Done Comments PAP SMEAR 01/22/2019 01/23/2016 INFLUENZA VACCINE (#1) 2020 01/23/2016 Depression Screening 02/15/2021 02/16/2020 DTaP,Tdap,and Td Vaccines (3 - Td) 02/15/2030 02/16/2020, 0 01/25/2014 PNEUMOCOCCAL 0-64 YEARS COMBINED SERIES Discontinued documented as of this encounter Procedures Procedure Name Priority Date/Time Associated Diagnosis Comme nts CONSENT/REFUSAL FOR Routine 07/25/2020 4:38 PM CDT DIAGNOSIS AND TREATMENT documented in this encounter Results Not on filedocumented in this encounter Visit Diagnoses Diagnosis Anal fissure - Primary External hemorrhoid External hemorrhoids without mention of complication documented in this encounter Insurance Payer Benefit Plan / Subscriber ID Effective Dates Phone Addre ss Type Group [facility] [id number] 2019-Present Medicaid COMM PLAN - MANAGED MEDICAID documented as of this encounter
[2020-08-26 12:13] LABS: Urine Blood 1+ (NEG); Urine Glucose NEGATIVE (NEG); Urine Protein NEGATIVE (NEG); Urine Specific Gravity 1.015 (1.005-1.030)
[2020-08-26] MEDS ORDERED: NA CHLORIDE 0.9% 1,000 ML ONE (12:17)
[2020-08-26 12:33] LABS: Absolute Lymphocytes (CBC) 1.6 K/uL (0.7-4.9); Basophils % 0.6 % (0-1.3); Hematocrit 38.7 % (36.0-45.0); Lymphocytes % 9.7 % (15.3-44.8); MPV 7.7 fL (7.6-11.3); RBC Red Blood Cell Count 4.37 M/uL (3.86-4.86)
[2020-08-26 12:44] LABS: Urine Bacteria <20 /HPF (<20); Urine Culture Reflex Order REFLEXED; Urine RBC <5 /HPF (NONE SEEN)
[2020-08-26 12:50] LABS: ALT/SGPT 12 U/L (12-78); AST/SGOT 9 U/L (15-37); Albumin 2.9 g/dL (3.4-5.0); Alkaline Phosphatase 94 U/L (45-117); BUN Blood Urea Nitrogen 9 mg/dL (7-18); Bicarbonate 31 mmol/L (21-32); Bilirubin Direct < 0.1 mg/dL (0-0.2); Bilirubin Total 0.4 mg/dL (0.2-1.0); Glucose Level 106 mg/dL (74-106); Lipase 50 U/L (73-393); Potassium 3.3 mmol/L (3.5-5.1); Protein, Total 7.1 g/dL (6.4-8.2); Sodium Level 139 mmol/L (136-145)
[2020-08-26 13:04] LABS: Blood Morphology Comment NOT SEEN (NOT SEEN); Platelet Estimate ADEQ
[2020-08-26] MEDS ORDERED: CEFTRIAXONE/SWI 1gm 1 GM/10 ML SYR ONE (13:20)
--- NOTE | 2020-08-26 13:40 | RAD REPORT ---
EXAM DESCRIPTION: CTAbdomen Pelvis W Contrast - 08/26/2020 1:21 pm CLINICAL HISTORY: Abdominal pain. burning with urination;Abd pain COMPARISON: No comparisons TECHNIQUE: Biphasic CT imaging of the abdomen and pelvis was performed with 100 ml non-ionic IV cont rast. All CT scans are performed using dose optimization technique as appropriate and may include automated exposure control or mA/KV adjustment according to patient size. FINDINGS: The lung bases are clear.Cholecystectomy clips. The liver, spleen, pancreas, adrenal glands and kidneys are within normal limits. No bowel obstruction, free air, free fluid or abscess. The appendix is normal. No evidence of signi ficant lymphadenopathy. No suspicious bony findings. Urinary bladder wall thickening is present. IMPRESSION: Urinary bladder wall thickening is present which may indicate cystitis. Otherwise, no acute abnormality detected.
--- NOTE | 2020-08-26 14:01 | ER ---
Nurse's Notes [facility] Name: Susanna Genao Age: 25 yrs Sex: Female : 1995 Arrival Date: 08/26/2020 Time: 11:14 Bed 16 Private MD: Diagnosis: Cystitis Presentation: 08/26 11:44 Chief complaint: Patient states: five days ago started having bad migraines, then iw started vomiting 3 days ago, and then started having abd pain, was having urine frequency and dark urine, not vomiting any more, pain across lower abd. Coronavirus screen: At this time, the client does not indicate any symptoms associated with coronavirus-19. Ebola Screen: Patient negative for fever greater than or equal to 101.5 degrees Fahrenheit, and additional compatible Ebola Virus Disease symptoms Patient denies exposure to infectious person. Patient denies travel to an Ebola-affected area in the 21 days before illness onset. No symptoms or risks identified at this time. Initial Sepsis Screen: Does the patient meet any 2 criteria? No. Patient's initial sepsis screen is negative. Does the patient have a suspected source of infection? No. Patient's initial sepsis screen is negative. Risk Assessment: Do you want to hurt yourself or someone else? Patient reports no desire to harm self or others. Onset of symptoms was August 21, 2020. 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 - Social history:: Smoking status: Patient reports the use of cigarette tobacco products, smokes one pack cigarettes per day. Patient uses alcohol, occasionally. Screenin:03 Abuse screen: Denies threats or abuse. Denies injuries from another. Nutritional aj1 screening: No deficits noted. Tuberculosis screening: No symptoms or risk factors identified. Assessment: 12:03 General: Appears in no apparent distress. uncomfortable, Behavior is calm, cooperative, aj1 appropriate for age. Pain: Complains of pain in right lower quadrant and left lower quadrant Pain does not radiate. Neuro: Level of Consciousness is awake, alert, obeys commands, Oriented to person, place, time, situation. Cardiovascular: Patient's skin is warm and dry. Respiratory: Airway is patent Respiratory effort is even, unlabored. GI: Abdomen is non-distended, Bowel sounds present X 4 quads. Abd is soft X 4 quads Abdomen is tender to palpation in right lower quadrant and left lower quadrant Reports nausea, vomiting, Patient currently denies diarrhea. : Reports urgency, urinary frequency. EENT: No signs and/or symptoms were reported regarding the EENT system. Derm: No signs and/or symptoms reported regarding the dermatologic system. Skin is pink, warm \T\ dry. normal. Musculoskeletal: No signs and/or symptoms reported regarding the musculoskeletal system. Circulation, motion, and sensation intact. 12:54 Reassessment: Patient appears in no apparent distress at this time. No changes from aj1 previously documented assessment. Patient and/or family updated on plan of care and expected duration. Pain level reassessed. Patient is alert, oriented x 3, equal unlabored respirations, skin warm/dry/pink. 13:41 Reassessment: Patient appears in no apparent distress at this time. No changes from aj1 previously documented assessment. Patient and/or family updated on plan of care and expected duration. Pain level reassessed. Patient is alert, oriented x 3, equal unlabored respirations, skin warm/dry/pink. Vital Signs: 11:44 BP 106 / 73; Pulse 94; Resp 16; Pulse Ox 100% on R/A; Weight 55.79 kg; Height 5 ft. 2 iw in. (157.48 cm); Pain 7/10; 12:54 BP 110 / 71; Pulse 75; Resp 18; Pulse Ox 100% on R/A; aj1 13:42 BP 109 / 73; Pulse 63; Resp 16; Pulse Ox 100% on R/A; aj1 11:44 Body Mass Index 22.50 (55.79 kg, 157.48 cm) iw ED Course: 11:14 Patient arrived in ED. mr 11:46 Triage completed. iw 11:47 Arm band placed on. iw 11:51 David Bermudez NP is PHCP. pm1 11:51 Yonny Cabrales MD is Attending Physician. pm1 12:01 Sneha Perez RN is Primary Nurse. ll1 12:03 Patient has correct armband on for positive identification. Bed in low position. Call aj1 light in reach. Pulse ox on. NIBP on. 12:03 No provider procedures requiring assistance completed. aj1 12:24 Inserted saline lock: 20 gauge in left antecubital area, using aseptic technique. Blood aj1 collected. 13:21 CT Abd/Pelvis - IV Contrast Only In Process Unspecified. EDMS 14:26 IV discontinued, intact, bleeding controlled, No redness/swelling at site. Pressure aj1 dressing applied. Administered Medications: 12:41 Drug: NS 0.9% 1000 ml Route: IV; Rate: 1000 ml; Site: left antecubital; aj1 13:10 Drug: Rocephin 1 grams Route: IV; Rate: calculated rate; Site: left antecubital; aj1 Outcome: 14:00 Discharge ordered by MD. pm1 14:26 Discharged to home ambulatory. aj1 14:26 Condition: stable 14:26 Discharge instructions given to patient, Instructed on discharge instructions, follow up and referral plans. medication usage, Demonstrated understanding of instructions, follow-up care, medications, Prescriptions given X 3. 14:28 Patient left the ED. aj1 Signatures: Dispatcher [employer] EDMS Liliana Mcmahon, NAEL RN aj1 Gaviota Joseph mr Vijaya Sellers RN NAEL iw David Bermudez, RYAN GROCERY CHECKER pm1 Sneha Perez, RN RN ll1 Corrections: (The following items were deleted from the chart) 11:46 11:44 Pulse 94bpm; Resp 16bpm; Pulse Ox 100% RA; 55.79 kg; Height 5 ft. 2 in.; BMI: iw 22.5; Pain 7/10; iw
--- NOTE | 2020-08-26 14:01 | EDPHYS ---
Physician Documentation [facility] Name: Susanna Genao Age: 25 yrs Sex: Female : 1995 Arrival Date: 08/26/2020 Time: 11:14 Bed 16 Private MD: ED Physician Yonny Cabrales HPI: 08/26 12:00 This 25 yrs old Female presents to ER via Ambulatory with complaints of pm1 Abdominal Pain. 12:00 The patient presents with abdominal pain. pm1 12:00 Onset: The symptoms/episode began/occurred 3 day(s) ago. The symptoms do not radiate. pm1 Associated signs and symptoms: Pertinent positives: dysuria, nausea, vomiting, Pertinent negatives: chest pain, diarrhea, fever, shortness of breath. The symptoms are described as crampy, sharp. Modifying factors: the symptoms are aggravated by Urination. Severity of pain: in the emergency department the pain is actually worse. The patient has experienced similar episodes in the past, a few times. It is unknown whether or not the patient has recently seen a physician. 12:00 Patient with resolution of her nausea, vomiting, and headache. currently presenting pm1 with abdominal pain and burning with urination. 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 - Social history:: Smoking status: Patient reports the use of cigarette tobacco products, smokes one pack cigarettes per day. Patient uses alcohol, occasionally. ROS: 12:00 Constitutional: Negative for fever, chills, and weight loss, Eyes: Negative for injury, pm1 pain, redness, and discharge, ENT: Negative for injury, pain, and discharge, Neck: Negative for injury, pain, and swelling, Cardiovascular: Negative for chest pain, palpitations, and edema, Respiratory: Negative for shortness of breath, cough, wheezing, and pleuritic chest pain. 12:00 Back: Negative for injury and pain, MS/Extremity: Negative for injury and deformity, Skin: Negative for injury, rash, and discoloration. 12:00 Abdomen/GI: Positive for abdominal pain, nausea, vomiting, Negative for diarrhea, constipation. 12:00 Neuro: Positive for headache, Negative for numbness, tingling. Exam: 12:00 Constitutional: This is a well developed, well nourished patient who is awake, alert, pm1 and in no acute distress. Head/Face: Normocephalic, atraumatic. 12:00 Back: No spinal tenderness. No costovertebral tenderness. Full range of motion. Skin: Warm, dry with normal turgor. Normal color with no rashes, no lesions, and no evidence of cellulitis. MS/ Extremity: Pulses equal, no cyanosis. Neurovascular intact. Full, normal range of motion. 12:00 Cardiovascular: Exam negative for acute changes, Rate: normal, Rhythm: regular, Pulses: no pulse deficits are appreciated. 12:00 Respiratory: Exam negative for acute changes, respiratory distress, shortness of breath. 12:00 Abdomen/GI: Inspection: abdomen appears normal, Palpation: soft, in all quadrants, mild abdominal tenderness, in the suprapubic area and right lower quadrant. 12:00 Neuro: Exam negative for acute changes, Orientation: is normal, Motor: is normal, moves all fours. Vital Signs: 11:44 BP 106 / 73; Pulse 94; Resp 16; Pulse Ox 100% on R/A; Weight 55.79 kg; Height 5 ft. 2 iw in. (157.48 cm); Pain 7/10; 12:54 BP 110 / 71; Pulse 75; Resp 18; Pulse Ox 100% on R/A; aj1 13:42 BP 109 / 73; Pulse 63; Resp 16; Pulse Ox 100% on R/A; aj1 11:44 Body Mass Index 22.50 (55.79 kg, 157.48 cm) iw MDM: 11:53 Patient medically screened. pm1 13:56 Data reviewed: vital signs. Data interpreted: Pulse oximetry: on room air is 100 %. pm1 Interpretation: normal. Counseling: I had a detailed discussion with the patient and/or guardian regarding: the historical points, exam findings, and any diagnostic results supporting the discharge/admit diagnosis, lab results, radiology results, the need for outpatient follow up, to return to the emergency department if symptoms worsen or persist or if there are any questions or concerns that arise at home. 08/26 11:59 Order name: Basic Metabolic Panel; Complete Time: 12:52 pm1 08/26 11:59 Order name: CBC with Diff; Complete Time: 13:55 pm1 08/26 11:59 Order name: Hepatic Function; Complete Time: 12:52 pm1 08/26 11:59 Order name: Lipase; Complete Time: 12:52 pm1 08/26 11:59 Order name: Urine Microscopic Only; Complete Time: 12:46 pm1 08/26 12:06 Order name: Urine Dipstick--Ancillary (enter results); Complete Time: 12:15 3 08/26 11:59 Order name: IV Saline Lock; Complete Time: 12:24 pm1 08/26 11:59 Order name: CT Abd/Pelvis - IV Contrast Only; Complete Time: 13:55 pm1 08/26 12:06 Order name: Urine --Ancillary (enter results) formerly [facility] 08/26 12:07 Order name: Urine --Ancillary; Complete Time: 12:15 EDMA 08/26 12:45 Order name: Urine Culture [facility] 08/26 13:04 Order name: Manual Differential; Complete Time: 13:55 EDMS 08/26 11:59 Order name: Labs collected and sent; Complete Time: 12:24 pm1 08/26 11:59 Order name: Urine Dipstick-Ancillary (obtain specimen); Complete Time: 12:05 pm1 08/26 11:59 Order name: Urine Test (obtain specimen); Complete Time: 12:05 pm1 Administered Medications: 12:41 Drug: NS 0.9% 1000 ml Route: IV; Rate: 1000 ml; Site: left antecubital; [facility] 13:10 Drug: Rocephin 1 grams Route: IV; Rate: calculated rate; Site: left antecubital; [facility] Disposition: 08/27 08:58 Co-signature as Attending Physician, Yonny Cabrales MD I agree with the assessment and singh plan of care. Disposition: 08/26/20 14:00 Discharged to Home. Impression: Cystitis. - Condition is Stable. - Discharge Instructions: Urinary Tract Infection, Adult. - Prescriptions for Pyridium 200 mg Oral Tablet - take 1 tablet by ORAL route every 8 hours for 3 days; 9 tablet. Bactrim DS 800- 160 mg Oral Tablet - take 1 tablet by ORAL route every 12 hours for 10 days; 20 tablet. Tramadol 50 mg Oral Tablet - take 1 tablet by ORAL route every 8 hours as needed; 12 tablet. - Medication Reconciliation Form, Thank You Letter, Antibiotic Education, Prescription Opioid Use form. - Follow up: Emergency Department; When: As needed; Reason: Worsening of condition. Follow up: Private Physician; When: 2 - 3 days; Reason: Recheck today's complaints, Continuance of care, Re-evaluation by your physician. - Problem is new. - Symptoms have improved. Signatures: Dispatcher [employer] EDLiliana Nino RN RN aj1 Yonny Cabrales MD MD cha Williams, Irene, RN RN iw Marinas, Patrick, VICE PRESIDENT OF SOFTWARE DEVELOPMENT VICE PRESIDENT OF SOFTWARE DEVELOPMENT pm1 Corrections: (The following items were deleted from the chart) 08/26 14:28 14:00 08/26/2020 14:00 Discharged to Home. Impression: Cystitis. Condition is Stable. aj1 Forms are Medication Reconciliation Form, Thank You Letter, Antibiotic Education, Prescription Opioid Use. Follow up: Emergency Department; When: As needed; Reason: Worsening of condition. Follow up: Private Physician; When: 2 - 3 days; Reason: Recheck today's complaints, Continuance of care, Re-evaluation by your physician. Problem is new. Symptoms have improved. pm1 14:43 12:00 Associated signs and symptoms: Pertinent positives: dysuria, nausea, Pertinent pm1 negatives: chest pain, diarrhea, fever, shortness of breath, pm1 14:43 12:00 Abdomen/GI: Positive for abdominal pain, nausea, Negative for vomiting, diarrhea, pm1 constipation, pm1
[2020-08-26 14:39] VITALS: O2SAT 100
[2020-08-26 14:50] VITALS: BP 109/73
== END 2020-08-26 14:28 | disposition home or self-care (01) ==
LOC: ER 11:11
DX: N30.90 Cystitis, unspecified without hematuria (principal); F17.210 Nicotine dependence, cigarettes, uncomplicated
CPT/HCPCS: 87088; 85025; 87086; 80048; 36415; 81025; 80076; 83690; 74177; 96374; 99284; Q9967; J0696; J7030; 81003; 81015